=== PATIENT | female | born 1950 | race American Indian/Alaskan Native ===

== ENCOUNTER 2020-07-29 09:48 | Observation (INO) ==
[2020-07-29] MEDS ORDERED: ASPIRIN 81 MG TAB.CHEW CHEWED ONE (10:10)
--- NOTE | 2020-07-29 10:35 | XRay Report ---
CLINICAL INFORMATION: Weakness COMPARISON: None. TECHNIQUE: PA and Lateral views FINDINGS: The heart size, mediastinum and pulmonary vessels are unremarkable. The lungs are clear. There are no effusions. The bones and soft tissues are within normal limits. IMPRESSION: Normal chest. Interpreted and Authenticated by: Pro Ryder 07/29/20
[2020-07-29 10:56] LABS: Basophils # (Auto) 0.06 K/mcL (0.00-0.30); Basophils % (Auto) 1.8 % (0.0-2.0); Eosinophils # (Auto) 0.18 K/mcL (0.00-0.70); Eosinophils % (Auto) 5.5 % (0.0-7.0); Granulocytes % (Auto) 56.8 % (38.0-78.0); Hematocrit 35.6 % (34.1-44.9); Hemoglobin 11.8 g/dL (11.2-15.7); Lymphocytes % (Auto) 21.3 % (15.5-49.0); Mean Cell Volume 104.7 fL (80.0-100.0); Mean Corpuscular HGB Conc 33.1 g/dL (31.0-36.0); Mean Platelet Volume 9.3 fL (7.4-10.4); Monocytes # (Auto) 0.48 K/mcL (0.10-0.90); Monocytes % (Auto) 14.6 % (1.0-12.0); Platelet Count 239 K/mcL (140-440); Red Cell Distribution Width 17.2 % (11.5-14.5); WBC 3.3 K/mcL (4.50-11.00)
[2020-07-29 11:36] LABS: Creatine Kinase MB 5.8 ng/ml (0-2.9); Myoglobin 65 ng/ml (25-58)
[2020-07-29 11:45] LABS: ALT/SGPT 13 U/l (0-40); AST/SGOT 24 U/l (0-37); Albumin 2.9 gm/dL (3.2-5.2); Albumin/Globulin Ratio 0.5 (1.0-2.3); Alkaline Phosphatase 42 U/L (39-117); Bilirubin,Total 1.1 mg/dL (0.0-1.0); Blood Urea Nitrogen 8 mg/dl (8-23); Carbon Dioxide 21 mmol/L (22-30); Chloride 99 mmol/L (96-108); Creatine Kinase 37 IU/L (24-170); Globulin 6.1 gm/dL (2.2-3.7); Glomerular Filtration Rate 87; Glucose 90 mg/dL (70-105)
[2020-07-29] MEDS ORDERED: POTASSIUM CHLORIDE 20 MEQ in DEXTROSE 5% IN WATER 250 ML IV ONE (11:58)
[2020-07-29 13:06] LABS: Appearance,Urine HAZY; Bacteria,Urine FEW /hpf (0); Bilirubin,Urine NEG (NEG); Color,Urine AMBER; Culture Indicated,Urine YES; Glucose,Urine (UA) NEGATIVE (NEG); Ketones,Urine 5/TR mg/dL (NEG); Leukocyte Esterase,Urine 250 /uL (NEG); Mucus,Urine MANY /hpf (0); Nitrate,Urine NEG (NEG); Protein,Urine 30 mg/dL (NEG); Specific Gravity,Urine 1.018 (1.000-1.035); Urine Blood NEG mg/dL (<0.03); Urine Hyaline Cast 170 /lpf (0-2); Urine RBC 2 /hpf (0-1); Urine Squamous Epithelial Cell 3 /hpf (0-4); Urine Transitional Epi Cells 1 /hpf (0-2); Urine WBC 18 /hpf (0-4)
--- NOTE | 2020-07-29 13:53 | Emergency Department Note ---
Weakness HPI General Chief complaint: Weakness Stated complaint: weak Time Seen by Provider: 07/29/20 10:05 Source: family Mode of arrival: wheelchair Limitations: no limitations History of Present Illness HPI Narrative: Narrative: 70-year-old female presents with multiple complaints. Main concern is chest pain for the last 4 to 6 months. She went to her primary care provider's office on Wednesday and they found out today that her troponin was elevated at 0.05 so they sent her to the ER for further evaluation. States she has been generally weak, losing times a week, and having this chest pain for at least 4 months, may be more like 6 months. Chest pain is a constant dull ache in the left side of her chest. It was reported that she needs to go to some sort of assisted living facility or long term that she cannot care for herself at home and they would like health and social care teacher to see her for that. No fever or chills. No cough or cold symptoms. No nausea, vomiting, or diarrhea. She does report that she was tested for COVID a while ago, possibly a couple of weeks ago and it was negative but she cannot recall exactly when. She denies any fall, trauma, or injury. Is poor historian. States her recent medications were recently changed and she cannot tell us her current medication list. She has no other complaints other than chest pain and generalized weakness. No home treatments. Nothing seems to make this better or worse, it is constant. Related Data Home Medications Medication Instructions Recorded Confirmed azathioprine 50 mg PO QDAY 07/29/20 07/29/20 ergocalciferol (vitamin D2) 1,250 mcg PO WEEKLY 07/29/20 07/29/20 ferrous sulfate 325 mg PO QDAY 07/29/20 07/29/20 lidocaine [Lidocaine Pain Relief] 2 patch TOPICAL Q24H PRN 07/29/20 07/29/20 metoprolol succinate 12.5 mg PO QDAY 07/29/20 07/29/20 polyethylene glycol 3350 [Miralax] 17 g PO BID 07/29/20 07/29/20 prednisone 10 mg PO QDAY 07/29/20 07/29/20 Allergies Allergy/AdvReac Type Severity Reaction Status Date / Time aspirin Allergy Severe Numbness Verified 07/29/20 10:19 albuterol Allergy Unknown Unknown Verified 07/29/20 10:19 Benzonatate Allergy Unknown Unknown Verified 07/29/20 10:19 codeine Allergy Unknown Unknown Verified 07/29/20 10:19 doxycycline Allergy Unknown Unknown Verified 07/29/20 10:19 hydrocodone Allergy Unknown Unknown Verified 07/29/20 10:19 loratadine Allergy Unknown Unknown Verified 07/29/20 10:19 Review of Systems ROS ROS Narrative: Narrative: All systems ED: reviewed and negative except as stated. PFSH Narrative Patient History Narrative: Narrative: Medical/Surgical/Family History All Active Problems (Updated 07/29/20 @ 17:32 by Aida Torrez [employer] MACHINE OPERATOR) Acute hypokalemia (Acute) Chronic chest pain (Acute) Generalized weakness (Acute) Adult failure to thrive (Acute) Constipation (Acute) Medical History COPD (chronic obstructive pulmonary disease) (Acute) Liver problem (Acute) Social History Smoking Status: Never smoker Alcohol Intake Frequency: does not drink Substance Use: does not use Exam Narrative Narrative: Narrative: General Limitations: no limitations General appearance: Present thin (and frail appearing) Head Head: Present atraumatic and normocephalic Eye Eye: Present normal appearance; Absent conjunctival injection ENT ENT: Present normal exam, normal oropharynx, mucous membranes moist, TM's normal bilaterally and normal external ear exam Neck Neck: Present normal inspection and trachea midline; Absent lymphadenopathy Chest Chest: Present normal inspection and symmetric chest wall rise Respiratory Respiratory: Present normal lung sounds bilaterally; Absent respiratory distress, rales/crackles, wheezes, stridor and accessory muscle use Cardiovascular Cardiovascular: Present regular rate and normal heart sounds Extremities Extremities: Present normal inspection Neurological Neurological: Present alert and oriented X3 Psychiatric Psychiatric: Present normal affect and normal mood Skin Skin: Present warm, dry, intact and normal color; Absent diaphoretic and rash Course Course Course Narrative: @ 1600, I did speak with the office services clerk, Dr. Rodriguez at [facility]. Discussed the 0.05 troponin with him on Wednesday and the possibility of a non-STEMI. He states this was possibly an incidental finding as it was only mildly high and repeat labs today are all negative. EKG without acute changes. Discussed with him a stress test and he states this is not emergent by any means and can be completely worked up outpatient with no urgency. At 1610 I did speak with the hospitalist, Dr. Han who agrees to accept this patient. Vital Signs Vital signs: Vital Signs Temperature 96.7 F L 07/29/20 09:50 Pulse Rate 85 07/29/20 09:50 Respiratory Rate 16 07/29/20 09:50 Blood Pressure 120/74 07/29/20 09:50 Pulse Oximetry (%) 98 07/29/20 09:50 Temperature 96.7 F L 07/29/20 09:50 Pulse Rate 87 07/29/20 17:16 Respiratory Rate 30 H 07/29/20 17:16 Blood Pressure 127/73 07/29/20 17:16 Pulse Oximetry (%) 99 07/29/20 17:16 MDM MDM Narrative Medical decision making narrative: Narrative: Lab Data Lab results reviewed: Yes I reviewed the patient's lab results. Result diagrams: 07/29/20 10:16 07/29/20 10:16 Labs: Lab Results 07/29/20 07/29/20 07/29/20 Range/Units 10:16 10:16 10:16 WBC 3.3 L (4.50-11.00) K/mcL RBC 3.40 L (3.59-5.38) M/mcL Hgb 11.8 (11.2-15.7) g/dL Hct 35.6 (34.1-44.9) % MCV 104.7 H (80.0-100.0) fL MCH 34.7 H (26.0-34.0) pg MCHC 33.1 (31.0-36.0) g/dL RDW 17.2 H (11.5-14.5) % Plt Count 239 (140-440) K/mcL MPV 9.3 (7.4-10.4) fL Gran % 56.8 (38.0-78.0) % Lymph % (Auto) 21.3 (15.5-49.0) % [place] % (Auto) 14.6 H (1.0-12.0) % Eos % (Auto) 5.5 (0.0-7.0) % Baso % (Auto) 1.8 (0.0-2.0) % Gran # 1.86 (1.80-8.00) K/mcL Lymph # (Auto) 0.70 L (1.50-4.80) K/mcL [place] # (Auto) 0.48 (0.10-0.90) K/mcL Eos # (Auto) 0.18 (0.00-0.70) K/mcL Baso # (Auto) 0.06 (0.00-0.30) K/mcL Sodium 138 (133-145) mmol/L Potassium 2.9 L* (3.3-5.1) mmol/L Chloride 99 (96-108) mmol/L Carbon Dioxide 21 L (22-30) mmol/L Anion Gap 18.0 H (8-16) BUN 8 (8-23) mg/dl Creatinine 0.7 (0.6-1.1) mg/dl GFR Calculation 87 Glucose 90 (70-105) mg/dL Calcium 9.0 (8.6-10.4) mg/dl Total Bilirubin 1.1 H (0.0-1.0) mg/dL AST 24 (0-37) U/l ALT 13 (0-40) U/l Alkaline Phosphatase 42 (39-117) U/L Total Creatine Kinase 37 (24-170) IU/L CK-MB (CK-2) 5.8 H (0-2.9) ng/ml Myoglobin 65 H (25-58) ng/ml Troponin T < 0.01 (0-0.03) ng/ml Total Protein 9.0 H (5.9-8.4) gm/dL Albumin 2.9 L (3.2-5.2) gm/dL Globulin 6.1 H (2.2-3.7) gm/dL Albumin/Globulin Ratio 0.5 L (1.0-2.3) Hold Red Top Not Reportable Urine Color Urine Appearance Urine pH (5.0-9.0) Ur Specific [place] (1.000-1.035) Urine Protein (NEG) mg/dL Urine Glucose (UA) (NEG) mg/dL Urine Ketones (NEG) mg/dL Urine Occult Blood (<0.03) mg/dL Urine Nitrate (NEG) Urine Bilirubin (NEG) mg/dL Urine Urobilinogen (NEG) mg/dL Ur Leukocyte Esterase (NEG) /uL Urine RBC (0-1) /hpf Urine WBC (0-4) /hpf Ur Squamous Epith Cells (0-4) /hpf Ur Transition Epith Cell (0-2) /hpf Urine Bacteria (0) /hpf Hyaline Casts (0-2) /lpf Urine Mucus (0) /hpf Ur Culture Indicated? 07/29/20 07/29/20 Range/Units 10:16 11:52 WBC (4.50-11.00) K/mcL RBC (3.59-5.38) M/mcL Hgb (11.2-15.7) g/dL Hct (34.1-44.9) % MCV (80.0-100.0) fL MCH (26.0-34.0) pg MCHC (31.0-36.0) g/dL RDW (11.5-14.5) % Plt Count (140-440) K/mcL MPV (7.4-10.4) fL Gran % (38.0-78.0) % Lymph % (Auto) (15.5-49.0) % [place] % (Auto) (1.0-12.0) % Eos % (Auto) (0.0-7.0) % Baso % (Auto) (0.0-2.0) % Gran # (1.80-8.00) K/mcL Lymph # (Auto) (1.50-4.80) K/mcL [place] # (Auto) (0.10-0.90) K/mcL Eos # (Auto) (0.00-0.70) K/mcL Baso # (Auto) (0.00-0.30) K/mcL Sodium (133-145) mmol/L Potassium (3.3-5.1) mmol/L Chloride (96-108) mmol/L Carbon Dioxide (22-30) mmol/L Anion Gap (8-16) BUN (8-23) mg/dl Creatinine (0.6-1.1) mg/dl GFR Calculation Glucose (70-105) mg/dL Calcium (8.6-10.4) mg/dl Total Bilirubin (0.0-1.0) mg/dL AST (0-37) U/l ALT (0-40) U/l Alkaline Phosphatase (39-117) U/L Total Creatine Kinase 36 (24-170) IU/L CK-MB (CK-2) (0-2.9) ng/ml Myoglobin (25-58) ng/ml Troponin T (0-0.03) ng/ml Total Protein (5.9-8.4) gm/dL Albumin (3.2-5.2) gm/dL Globulin (2.2-3.7) gm/dL Albumin/Globulin Ratio (1.0-2.3) Hold Red Top Urine Color [place] Urine Appearance Hazy Urine pH 6.0 (5.0-9.0) Ur Specific [place] 1.018 (1.000-1.035) Urine Protein 30 A (NEG) mg/dL Urine Glucose (UA) Negative (NEG) mg/dL Urine Ketones 5/tr A (NEG) mg/dL Urine Occult Blood Neg (<0.03) mg/dL Urine Nitrate Neg (NEG) Urine Bilirubin Neg (NEG) mg/dL Urine Urobilinogen 4.0 A (NEG) mg/dL Ur Leukocyte Esterase 250 A (NEG) /uL Urine RBC 2 H (0-1) /hpf Urine WBC 18 H (0-4) /hpf Ur Squamous Epith Cells 3 (0-4) /hpf Ur Transition Epith Cell 1 (0-2) /hpf Urine Bacteria Few A (0) /hpf Hyaline Casts 170 H (0-2) /lpf Urine Mucus Many A (0) /hpf Ur Culture Indicated? Yes Radiology Data Radiology results reviewed: Yes I reviewed the patient's radiology results. Discharge Plan Patient/Caregiver Discharge Instructions Pt seen by HEAD GIRLS GOLF COACH/PA only: Yes Clinical Impression: Acute hypokalemia, Chronic chest pain, Generalized weakness, Adult failure to thrive Patient Disposition: Xfer As Outpt/Obs ([facility]) Condition: Fair Follow up with: Ulises Olivier ARNP [Primary Care Provider] - Prescriptions: No Action ferrous sulfate 325 mg (65 mg iron) Tablet 325 mg PO QDAY RF: 0 metoprolol succinate 25 mg Tablet Extended Release 24 Hr 12.5 mg PO QDAY RF: 0 ergocalciferol (vitamin D2) 1,250 mcg (50,000 unit) Capsule 1,250 mcg PO WEEKLY RF: 0 polyethylene glycol 3350 [Miralax] 17 gram/dose Powder 17 g PO BID RF: 0 prednisone 10 mg Tablet 10 mg PO QDAY RF: 0 lidocaine [Lidocaine Pain Relief] 4 % Adhesive Patch,Medicated 2 patch TOPICAL Q24H PRN (Reason: Pain) RF: 0 azathioprine 50 mg Tablet 50 mg PO QDAY RF: 0
[2020-07-29] MEDS ORDERED: ONDANSETRON 4 MG ODT TABLET SL PRN (16:32)
[2020-07-29] MEDS ORDERED: LIDOCAINE TOPICAL PRN (16:39)
[2020-07-29] MEDS ORDERED: 0.9 % SODIUM CHLORIDE 1,000 ML IV SCH ×2 (16:45→17:45)
[2020-07-29] MEDS ORDERED: ERGOCALCIFEROL (VITAMIN D2) 50,000 UNIT CAPSULE PO SCH (16:45)
--- NOTE | 2020-07-29 16:57 | Internal Med History&Physical ---
HPI History of Present Illness Patient information: Note initiated : 07/29/20 at 4:44 pm Service Date, if different from initiated Date: [] Patient: Jodie Cazares a 70 y/o F admitted on for weak. Chief Complaint: [] History of present illness: Ms. Cazares is a 70 year old F with a past medical history of hypertension who presented to the ER due to chest pain and generalized weakness. As per patient, patient has been having constant left-sided chest pain over the past 4 to 6 months. The pain is sharp in nature and 9 out of 10 in severity. No radiation. She also complains of generalized weakness and is not able to take care for her self. She lives alone and would like to go to a facility. Last Wednesday, she went to her PCP office, over there she was found to have elevation of troponin, 0.05. In the ER, troponin was negative, less than 0.01. Potassium 2.9. When I saw this patient in the ER, other than the symptoms, she also complained of mild dizziness, nausea and shortness of breath. Denied headache, abdominal pain, diarrhea, or dysuria. She had a negative completed 19 test weeks ago. Review of Systems Review of systems: Positive for chest pain. All other systems were reviewed and are negative. PFSH PFSH All Active Problems Constipation (Acute) Medical History COPD (chronic obstructive pulmonary disease) (Acute) Liver problem (Acute) Social History smoking status: Never smoker alcohol intake frequency: does not drink substance use type: does not use MEDS/ALLERGIES Home Medications and Allergies Home Medications Medication Instructions Recorded Confirmed Type azathioprine 50 mg PO QDAY 07/29/20 07/29/20 History ergocalciferol (vitamin D2) 1,250 mcg PO WEEKLY 07/29/20 07/29/20 History ferrous sulfate 325 mg PO QDAY 07/29/20 07/29/20 History lidocaine [Lidocaine Pain Relief] 2 patch TOPICAL Q24H PRN 07/29/20 07/29/20 History metoprolol succinate 12.5 mg PO QDAY 07/29/20 07/29/20 History polyethylene glycol 3350 [Miralax] 17 g PO BID 07/29/20 07/29/20 History prednisone 10 mg PO QDAY 07/29/20 07/29/20 History Allergies Allergy/AdvReac Type Severity Reaction Status Date / Time aspirin Allergy Severe Numbness Verified 07/29/20 10:19 albuterol Allergy Unknown Unknown Verified 07/29/20 10:19 Benzonatate Allergy Unknown Unknown Verified 07/29/20 10:19 codeine Allergy Unknown Unknown Verified 07/29/20 10:19 doxycycline Allergy Unknown Unknown Verified 07/29/20 10:19 hydrocodone Allergy Unknown Unknown Verified 07/29/20 10:19 loratadine Allergy Unknown Unknown Verified 07/29/20 10:19 EXAM Constitutional Vitals: Temp Pulse Resp BP Pulse Ox 96.7 F L 88 17 139/79 98 07/29/20 09:50 07/29/20 16:31 07/29/20 16:31 07/29/20 16:31 07/29/20 16:31 Additional findings Additional findings: General - No acute distress, thin Eyes - PERRLA, EOM intact ENT no rhinorrhea, no noticeable or palpable swelling, no redness or rash around throat or on face Neck supple, no JVD, no thyromegaly Respiratory: Lungs - diminshed BS, no use of accessary muscles. Cardiovascular -moderate chest that tenderness. RRR no m/r/g, GI - Normal bowel sounds, no distended, soft. Extremeties - No edema, cyanosis or clubbing Hemo/lymphatic/immune no lymphadenopathy Neurological Alert and oriented x 3, no focal neurological deficits. Psychiatry flat affect DATA Data Completed and Pending Labs: Labs from last 24 hours 07/29/20 07/29/20 07/29/20 11:52 10:16 10:16 WBC RBC Hgb Hct MCV MCH MCHC RDW Plt Count MPV Gran % Lymph % (Auto) [place] % (Auto) Eos % (Auto) Baso % (Auto) Gran # Lymph # (Auto) [place] # (Auto) Eos # (Auto) Baso # (Auto) Sodium Potassium Chloride Carbon Dioxide Anion Gap BUN Creatinine GFR Calculation Glucose Calcium Total Bilirubin AST ALT Alkaline Phosphatase Total Creatine Kinase 36 CK-MB (CK-2) Myoglobin Troponin T < 0.01 Total Protein Albumin Globulin Albumin/Globulin Ratio Hold Red Top Urine Color [place] Urine Appearance Hazy Urine pH 6.0 Ur Specific [place] 1.018 Urine Protein 30 A Urine Glucose (UA) Negative Urine Ketones 5/tr A Urine Occult Blood Neg Urine Nitrate Neg Urine Bilirubin Neg Urine Urobilinogen 4.0 A Ur Leukocyte Esterase 250 A Urine RBC 2 H Urine WBC 18 H Ur Squamous Epith Cells 3 Ur Transition Epith Cell 1 Urine Bacteria Few A Hyaline Casts 170 H Urine Mucus Many A Ur Culture Indicated? Yes 07/29/20 07/29/20 10:16 10:16 WBC 3.3 L RBC 3.40 L Hgb 11.8 Hct 35.6 MCV 104.7 H MCH 34.7 H MCHC 33.1 RDW 17.2 H Plt Count 239 MPV 9.3 Gran % 56.8 Lymph % (Auto) 21.3 [place] % (Auto) 14.6 H Eos % (Auto) 5.5 Baso % (Auto) 1.8 Gran # 1.86 Lymph # (Auto) 0.70 L [place] # (Auto) 0.48 Eos # (Auto) 0.18 Baso # (Auto) 0.06 Sodium 138 Potassium 2.9 L* Chloride 99 Carbon Dioxide 21 L Anion Gap 18.0 H BUN 8 Creatinine 0.7 GFR Calculation 87 Glucose 90 Calcium 9.0 Total Bilirubin 1.1 H AST 24 ALT 13 Alkaline Phosphatase 42 Total Creatine Kinase 37 CK-MB (CK-2) 5.8 H Myoglobin 65 H Troponin T Total Protein 9.0 H Albumin 2.9 L Globulin 6.1 H Albumin/Globulin Ratio 0.5 L Hold Red Top Not Reportable Urine Color Urine Appearance Urine pH Ur Specific [place] Urine Protein Urine Glucose (UA) Urine Ketones Urine Occult Blood Urine Nitrate Urine Bilirubin Urine Urobilinogen Ur Leukocyte Esterase Urine RBC Urine WBC Ur Squamous Epith Cells Ur Transition Epith Cell Urine Bacteria Hyaline Casts Urine Mucus Ur Culture Indicated? A/P Narrative A/P Narrative: 1. Chest pain Tenderness Last Wednesday troponin was 0.05. In the ER, troponin negative. Repeat troponin EKG no ST elevation Chest x-ray negative for acute change ER Aida discussed with central communications specialist Dr. Landeros, who felt pt does not stress test at this admission and suggested stress test as an outpatient. Start aspirin and Lipitor Lipid profile 2. Generalized weakness PT OT 3. Adult failure to thrive Garage Helper consult TSH Hemoglobin A1c 4. Seft care deficit PT OT CM 5. HTN Continue home medication 6. Hypokalemia Replaced Repeat potassium in the morning 7. Malnutrition Nutritional consult 8. DVT prophylaxis: Lovenox 9. CODE STATUS: Full. Time Spent With Patient Time: Total time spent is greater than 50% in coordination of care (as documented) at patient's floor/unit and/or counseling patient:
[2020-07-29] MEDS ORDERED: LIDOCAINE PATCH TOPICAL PRN ×2 (17:00→17:45)
--- NOTE | 2020-07-29 17:03 | Event Note ---
Event Note Event Note: Parties in Attendance: Patient Decisional Capacity: Yes POLST form completed: not I explained the process regarding CPR and intubation to the patient. Pt agreed with CRP and intubation.
[2020-07-29 17:56] LABS: Thyroid Stimulating Hormone 3.64 uIU/ml (0.27-5.01); proBNP 983.8 pg/ml (0-125)
[2020-07-29 18:04] LABS: Phosphorous 3.5 mg/dL (2.7-4.5)
[2020-07-29] MEDS: ONDANSETRON 4 MG ODT TABLET SL PRN (18:21)
[2020-07-29 18:29] LABS: Hemoglobin A1C 4.5 % HGB (4.0-6.0)
[2020-07-29] MEDS ORDERED: traMADol 50 MG TABLET PO PRN (19:52)
[2020-07-29] MEDS: morphine 2 MG/ML VIAL IV PRN (20:26)
[2020-07-29] MEDS: POTASSIUM CHLORIDE 20 MEQ TABLET PO SCH ×2 (20:30→22:44)
[2020-07-29] MEDS: DOCUSATE SODIUM 100 MG CAPSULE PO SCH (20:30)
[2020-07-29] MEDS: POLYETHYLENE GLYCOL 3350 17 GM PACKET PO SCH (20:31)
[2020-07-29] MEDS: 0.9 % SODIUM CHLORIDE 10 ML SYRINGE IV SCH (20:33)
[2020-07-29] MEDS ORDERED: DOCUSATE SODIUM 100 MG CAPSULE PO SCH (21:00)
[2020-07-29] MEDS ORDERED: POLYETHYLENE GLYCOL 3350 17 GM PACKET PO SCH (21:00)
[2020-07-29] MEDS ORDERED: SENNOSIDES 1 TABLET PO SCH ×2 (21:00)
[2020-07-29] MEDS ORDERED: 0.9 % SODIUM CHLORIDE 10 ML SYRINGE IV SCH (22:00)
[2020-07-30] MEDS: POTASSIUM CHLORIDE 20 MEQ TABLET PO SCH ×2 (00:46→02:07)
[2020-07-30] MEDS: morphine 2 MG/ML VIAL IV PRN ×2 (02:16→09:40)
[2020-07-30] MEDS: 0.9 % SODIUM CHLORIDE 10 ML SYRINGE IV SCH (05:47)
[2020-07-30 07:30] LABS: Basophils # (Auto) 0.06 K/mcL (0.00-0.30); Basophils % (Auto) 1.4 % (0.0-2.0); Eosinophils # (Auto) 0.29 K/mcL (0.00-0.70); Eosinophils % (Auto) 6.7 % (0.0-7.0); Granulocytes % (Auto) 47.7 % (38.0-78.0); Hematocrit 31.7 % (34.1-44.9); Hemoglobin 10.5 g/dL (11.2-15.7); Lymphocytes # (Auto) 0.98 K/mcL (1.50-4.80); Lymphocytes % (Auto) 22.8 % (15.5-49.0); Mean Cell Volume 106.4 fL (80.0-100.0); Mean Corpuscular HGB Conc 33.1 g/dL (31.0-36.0); Mean Platelet Volume 9.3 fL (7.4-10.4); Monocytes # (Auto) 0.92 K/mcL (0.10-0.90); Monocytes % (Auto) 21.4 % (1.0-12.0); Platelet Count 224 K/mcL (140-440); RBC 2.98 M/mcL (3.59-5.38); Red Cell Distribution Width 17.3 % (11.5-14.5); WBC 4.3 K/mcL (4.50-11.00)
[2020-07-30] MEDS ORDERED: PANTOPRAZOLE 40 MG TABLET PO SCH ×2 (07:30)
[2020-07-30 07:57] LABS: ALT/SGPT 11 U/l (0-40); AST/SGOT 21 U/l (0-37); Albumin 2.5 gm/dL (3.2-5.2); Albumin/Globulin Ratio 0.5 (1.0-2.3); Alkaline Phosphatase 38 U/L (39-117); Bilirubin,Total 0.9 mg/dL (0.0-1.0); Calcium 8.5 mg/dl (8.6-10.4); Carbon Dioxide 20 mmol/L (22-30); Chloride 104 mmol/L (96-108); Globulin 5.3 gm/dL (2.2-3.7); Glomerular Filtration Rate 92; Glucose 68 mg/dL (70-105)
[2020-07-30 07:59] LABS: Blood Urea Nitrogen 6 mg/dl (8-23)
[2020-07-30] MEDS ORDERED: FERROUS SULFATE 325 MG TABLET PO SCH ×2 (08:00)
[2020-07-30] MEDS ORDERED: predniSONE 10 MG TABLET PO SCH ×2 (08:00)
[2020-07-30] MEDS ORDERED: ASPIRIN 81 MG TAB.CHEW CHEWED SCH ×2 (09:00)
[2020-07-30] MEDS ORDERED: METOPROLOL SUCCINATE 25 MG TAB.XL.24H PO SCH ×2 (09:00)
[2020-07-30] MEDS ORDERED: ENOXAPARIN 40 MG/0.4 ML SYRINGE SQ SCH ×2 (09:00)
[2020-07-30] MEDS ORDERED: ATORVASTATIN 40 MG TABLET PO SCH ×2 (09:00)
[2020-07-30] MEDS ORDERED: azaTHIOprine 50 MG TABLET PO SCH ×2 (09:00)
[2020-07-30] MEDS: POLYETHYLENE GLYCOL 3350 17 GM PACKET PO SCH (09:40)
[2020-07-30] MEDS: ONDANSETRON 4 MG ODT TABLET SL PRN (09:41)
[2020-07-30] MEDS: DOCUSATE SODIUM 100 MG CAPSULE PO SCH (09:41)
--- NOTE | 2020-07-30 11:35 | Discharge Summary ---
Discharge Provider Provider Patient information: Note initiated : 07/30/20 at 11:34 am Service Date, if different from initiated Date: [] Patient: Jodie Cazares 70 y/o F admitted on 07/29/20 for weak. Chief Complaint: [] Date of admission: 07/29/20 17:32 Discharge date: 07/30/20 Primary care physician: MARIA DEL CARMEN Samuel Consults: 07/29/20 Consult to Physician [CONS] Stat Comment: Consulting Provider: Maria Teresa Han Reason For Exam: Physician to Consult 07/29/20 19:12 Consult to Physician [CONS] Routine Comment: Consulting Provider: [facility] Reason For Exam: Physician to Consult Discharge Meds Discharge Medications Home Medications azathioprine 50 mg PO QDAY 07/29/20 [History Confirmed 07/29/20 Last Taken Unknown] ergocalciferol (vitamin D2) 1,250 mcg PO WEEKLY 07/29/20 [History Confirmed 07/29/20 Last Taken Unknown] ferrous sulfate 325 mg PO QDAY 07/29/20 [History Confirmed 07/29/20 Last Taken Unknown] lidocaine [Lidocaine Pain Relief] 2 patch TOPICAL Q24H PRN 07/29/20 [History Confirmed 07/29/20 Last Taken Unknown] metoprolol succinate 12.5 mg PO QDAY 07/29/20 [History Confirmed 07/29/20 Last Taken Unknown] polyethylene glycol 3350 [Miralax] 17 g PO BID 07/29/20 [History Confirmed 07/29/20 Last Taken Unknown] prednisone 10 mg PO QDAY 07/29/20 [History Confirmed 07/29/20 Last Taken Unknown] aspirin 81 mg CHEWED DAILY #30 tab 07/30/20 [Rx Last Taken Unknown] atorvastatin 40 mg PO DAILY #30 tab 07/30/20 [Rx Last Taken Unknown] COURSE Hospital Course Hospital course: BY problems: 1. Chest pain Anterior chest tenderness, improved today troponin < 0.01 x [address] elevation Chest x-ray negative for acute change ER [facility]ra discussed with dealer development manager Dr. Landeros, who felt pt does not stress test at this admission and suggested stress test as an outpatient. Started aspirin and Lipitor 2. Generalized weakness PT OT 3. Adult failure to thrive Fur Finisher Seamstress consult TSH pending Hemoglobin A1c pending 4. Seft care deficit PT OT CM 5. HTN Continue home medication 6. Hypokalemia resovled 7. Malnutrition Nutritional consult Today patient does not have any new complaints. Chest pain improved. Monitor signs are stable. Troponin less than 0.01 x 3. Patient will be discharged to SNF today to follow with the PCP and dealer development manager. She would need stress test as soon as possible. Continue PT OT and the senior tableau developer consult. Call PCP for medical issues. Discharge diagnosis: Chest pain, Seft care deficit Time Spent with Patient Time attestation: Total time spent providing and/or coordinating discharge services: EXAM Constitutional Vitals: Temp Pulse Resp BP Pulse Ox 98.3 F 97 H 20 117/67 97 07/30/20 07:58 07/30/20 07:58 07/30/20 08:00 07/30/20 07:58 07/30/20 08:00 Additional findings Additional findings: General - No acute distress, thin Eyes - PERRLA, EOM intact ENT no rhinorrhea, no noticeable or palpable swelling, no redness or rash around throat or on face Neck supple, no JVD, no thyromegaly Respiratory: Lungs - diminshed BS, no use of accessary muscles. Cardiovascular -moderate chest that tenderness (improved). RRR no m/r/g, GI - Normal bowel sounds, no distended, soft. Extremeties - No edema, cyanosis or clubbing Hemo/lymphatic/immune no lymphadenopathy Neurological Alert and oriented x 3, no focal neurological deficits. Psychiatry flat affect Discharge Data Data Completed and Pending Labs on day of discharge: Labs from last 24 hours 07/30/20 07/30/20 07/30/20 06:15 06:15 06:15 WBC 4.3 L RBC 2.98 L Hgb 10.5 L Hct 31.7 L MCV 106.4 H MCH 35.2 H MCHC 33.1 RDW 17.3 H Plt Count 224 MPV 9.3 Gran % 47.7 Lymph % (Auto) 22.8 [place] % (Auto) 21.4 H Eos % (Auto) 6.7 Baso % (Auto) 1.4 Gran # 2.05 Lymph # (Auto) 0.98 L [place] # (Auto) 0.92 H Eos # (Auto) 0.29 Baso # (Auto) 0.06 Sodium 136 Potassium 4.6 Chloride 104 Carbon Dioxide 20 L Anion Gap 12.0 BUN 6 L Creatinine 0.6 GFR Calculation 92 Glucose 68 L Hemoglobin A1c Estim Average Glucose Calcium 8.5 L Phosphorus Magnesium Total Bilirubin 0.9 AST 21 ALT 11 Alkaline Phosphatase 38 L Total Creatine Kinase CK-MB (CK-2) Myoglobin Troponin T < 0.01 NT-Pro-B Natriuret Pep Total Protein 7.8 Albumin 2.5 L Globulin 5.3 H Albumin/Globulin Ratio 0.5 L TSH Hold Red Top Urine Color Urine Appearance Urine pH Ur Specific [place] Urine Protein Urine Glucose (UA) Urine Ketones Urine Occult Blood Urine Nitrate Urine Bilirubin Urine Urobilinogen Ur Leukocyte Esterase Urine RBC Urine WBC Ur Squamous Epith Cells Ur Transition Epith Cell Urine Bacteria Hyaline Casts Urine Mucus Ur Culture Indicated? 07/30/20 07/29/20 07/29/20 03:00 18:37 11:52 WBC RBC Hgb Hct MCV MCH MCHC RDW Plt Count MPV Gran % Lymph % (Auto) [place] % (Auto) Eos % (Auto) Baso % (Auto) Gran # Lymph # (Auto) [place] # (Auto) Eos # (Auto) Baso # (Auto) Sodium Potassium Chloride Carbon Dioxide Anion Gap BUN Creatinine GFR Calculation Glucose Hemoglobin A1c Estim Average Glucose Calcium Phosphorus Magnesium Total Bilirubin AST ALT Alkaline Phosphatase Total Creatine Kinase CK-MB (CK-2) Myoglobin Troponin T < 0.01 < 0.01 NT-Pro-B Natriuret Pep Total Protein Albumin Globulin Albumin/Globulin Ratio TSH Hold Red Top Urine Color [place] Urine Appearance Hazy Urine pH 6.0 Ur Specific [place] 1.018 Urine Protein 30 A Urine Glucose (UA) Negative Urine Ketones 5/tr A Urine Occult Blood Neg Urine Nitrate Neg Urine Bilirubin Neg Urine Urobilinogen 4.0 A Ur Leukocyte Esterase 250 A Urine RBC 2 H Urine WBC 18 H Ur Squamous Epith Cells 3 Ur Transition Epith Cell 1 Urine Bacteria Few A Hyaline Casts 170 H Urine Mucus Many A Ur Culture Indicated? Yes 07/29/20 07/29/20 07/29/20 10:16 10:16 10:16 WBC RBC Hgb Hct MCV MCH MCHC RDW Plt Count MPV Gran % Lymph % (Auto) [place] % (Auto) Eos % (Auto) Baso % (Auto) Gran # Lymph # (Auto) [place] # (Auto) Eos # (Auto) Baso # (Auto) Sodium Potassium Chloride Carbon Dioxide Anion Gap BUN Creatinine GFR Calculation Glucose Hemoglobin A1c 4.5 Estim Average Glucose 82 Calcium Phosphorus 3.5 Magnesium 1.8 Total Bilirubin AST ALT Alkaline Phosphatase Total Creatine Kinase 36 CK-MB (CK-2) Myoglobin Troponin T < 0.01 NT-Pro-B Natriuret Pep 983.8 H Total Protein Albumin Globulin Albumin/Globulin Ratio TSH 3.64 Hold Red Top Urine Color Urine Appearance Urine pH Ur Specific [place] Urine Protein Urine Glucose (UA) Urine Ketones Urine Occult Blood Urine Nitrate Urine Bilirubin Urine Urobilinogen Ur Leukocyte Esterase Urine RBC Urine WBC Ur Squamous Epith Cells Ur Transition Epith Cell Urine Bacteria Hyaline Casts Urine Mucus Ur Culture Indicated? 07/29/20 10:16 WBC RBC Hgb Hct MCV MCH MCHC RDW Plt Count MPV Gran % Lymph % (Auto) [place] % (Auto) Eos % (Auto) Baso % (Auto) Gran # Lymph # (Auto) [place] # (Auto) Eos # (Auto) Baso # (Auto) Sodium 138 Potassium 2.9 L* Chloride 99 Carbon Dioxide 21 L Anion Gap 18.0 H BUN 8 Creatinine 0.7 GFR Calculation 87 Glucose 90 Hemoglobin A1c Estim Average Glucose Calcium 9.0 Phosphorus Magnesium Total Bilirubin 1.1 H AST 24 ALT 13 Alkaline Phosphatase 42 Total Creatine Kinase 37 CK-MB (CK-2) 5.8 H Myoglobin 65 H Troponin T NT-Pro-B Natriuret Pep Total Protein 9.0 H Albumin 2.9 L Globulin 6.1 H Albumin/Globulin Ratio 0.5 L TSH Hold Red Top Not Reportable Urine Color Urine Appearance Urine pH Ur Specific [place] Urine Protein Urine Glucose (UA) Urine Ketones Urine Occult Blood Urine Nitrate Urine Bilirubin Urine Urobilinogen Ur Leukocyte Esterase Urine RBC Urine WBC Ur Squamous Epith Cells Ur Transition Epith Cell Urine Bacteria Hyaline Casts Urine Mucus Ur Culture Indicated? Discharge Plan Patient/Caregiver Discharge Instructions Activity: increase activity as tolerated Diet: Regular Diet Instructions: Weakness (DC) Prescriptions: New atorvastatin 40 mg Tablet 40 mg PO DAILY Qty: 30 RF: 0 aspirin 81 mg Tablet,Chewable 81 mg CHEWED DAILY Qty: 30 RF: 0 Continued ferrous sulfate 325 mg (65 mg iron) Tablet 325 mg PO QDAY RF: 0 metoprolol succinate 25 mg Tablet Extended Release 24 Hr 12.5 mg PO QDAY RF: 0 ergocalciferol (vitamin D2) 1,250 mcg (50,000 unit) Capsule 1,250 mcg PO WEEKLY RF: 0 polyethylene glycol 3350 [Miralax] 17 gram/dose Powder 17 g PO BID RF: 0 prednisone 10 mg Tablet 10 mg PO QDAY RF: 0 lidocaine [Lidocaine Pain Relief] 4 % Adhesive Patch,Medicated 2 patch TOPICAL Q24H PRN (Reason: Pain) RF: 0 azathioprine 50 mg Tablet 50 mg PO QDAY RF: 0 Follow Up Plan Follow up with: Ulises Olivier ARNP [Primary Care Provider] - Unknown [Outside] (pcp in 3 days and cardiology [place]. ) Patient Disposition: Xfer SNF Prognosis: Fair I certify that the patient requires SNF services: Yes Discharge Orders: Discharge Order (Routine); Ordered 07/30/20 Ordered By: Maria Teresa Han
== END 2020-07-30 12:26 ==
LOC: ED 09:48 → MEDSUR 09:48
PROVIDERS: ADMIT Internal Medicine; ATTEND Internal Medicine

== ENCOUNTER 2020-11-16 12:07 | Inpatient (IN) ==
[2020-11-16] MEDS ORDERED: IOPAMIDOL 100 ML BOTTLE IV ONE (12:08)
[2020-11-16 12:57] LABS: POC Calcium, Ionized 1.07 mmEq/L (1.16-1.32); POC Creatinine 0.3 mg/dL (0.6-1.2)
[2020-11-16 14:02] LABS: Basophils % (Auto) 1.4 % (0.0-2.0); Eosinophils # (Auto) 0.05 K/mcL (0.00-0.70); Eosinophils % (Auto) 0.7 % (0.0-7.0); Hematocrit 34.1 % (36.0-48.0); Hemoglobin 11.3 g/dL (12.0-15.0); Lymphocytes # (Auto) 0.86 K/mcL (1.50-4.80); Lymphocytes % (Auto) 11.8 % (15.0-49.0); Mean Cell Volume 107.9 fL (80.0-100.0); Mean Corpuscular HGB Conc 33.1 g/dL (31.0-36.0); Mean Platelet Volume 9.9 fL (7.4-10.4); Monocytes # (Auto) 0.74 K/mcL (0.10-0.90); Monocytes % (Auto) 10.2 % (1.0-12.0); Neutrophils % (Auto) 75.9 % (38.0-78.0); Platelet Count 210 K/mcL (140-440); RBC 3.16 M/mcL (4.00-5.20); Red Cell Distribution Width 14.3 % (11.5-14.5); WBC 7.3 K/mcL (4.5-11.0)
[2020-11-16 14:19] LABS: INR 1.1 (0.9-1.1)
[2020-11-16 14:19] LABS: Appearance,Urine CLEAR (Clear); Bilirubin,Urine Negative (Negative); Color,Urine AMBER; Culture Indicated,Urine No; Glucose,Urine (UA) Negative (Negative); Ketones,Urine 5 mg/dL (Negative); Leukocyte Esterase,Urine Negative /ug (Negative); Nitrate,Urine Negative (Negative); Protein,Urine Negative (Negative); Urine Blood Negative (Negative)
[2020-11-16] MEDS ORDERED: HYDROmorphone 0.5 MG/0.5 ML SYRINGE IV ONE ×2 (14:32→15:42)
--- NOTE | 2020-11-16 14:32 | Emergency Department Note ---
HPI General Chief complaint: Back Pain/Injury Stated complaint: back pain/fall Time Seen by Provider: 11/16/20 12:15 Source: patient and EMS Mode of arrival: wheelchair Limitations: no limitations History of Present Illness HPI Narrative: Narrative: 70-year-old female presents via EMS with multiple complaints. She called this morning due to 2 falls within the last 12 hours. States she gets so lightheaded that she falls. Occasionally has some chest pain or shortness of breath but nothing currently. No fever or chills. No nausea, vomiting, or diarrhea. States decreased appetite but she has been trying to m berna herself eat. She has a friend that checks on her once in a while but otherwise she lives at home alone with no help. Apparently for the last month or so she has been able unable to do much for herself at all and has recurrent falls almost daily. In the last 12 hours she states she did hit her head. She is had a headache and neck pain since. Also has thoracic and lumbar spine pain pain. No numbness or tingling. No incontinence of bowel or bladder. No abdominal pain. Has not been around any ill contacts that she knows of. No change in taste or smell. Denies being on blood thinners but is extremely poor historian. Related Data Home Medications Medication Instructions Recorded Confirmed azathioprine 50 mg PO QDAY 07/29/20 07/29/20 ergocalciferol (vitamin D2) 1,250 mcg PO WEEKLY 07/29/20 07/29/20 ferrous sulfate 325 mg PO QDAY 07/29/20 07/29/20 lidocaine [Lidocaine Pain Relief] 2 patch TOPICAL Q24H PRN 07/29/20 07/29/20 metoprolol succinate 12.5 mg PO QDAY 07/29/20 07/29/20 polyethylene glycol 3350 [Miralax] 17 g PO BID 07/29/20 07/29/20 prednisone 10 mg PO QDAY 07/29/20 07/29/20 famotidine 40 mg PO QDAY 11/16/20 11/16/20 polyvinyl alcohol [Artificial 1 drp OPHTHALMIC (EYE) QID PRN 11/16/20 11/16/20 Tears (polyvin alc)] Previous Rx's Medication Instructions Recorded aspirin 81 mg CHEWED DAILY #30 tab 07/30/20 atorvastatin 40 mg PO DAILY #30 tab 07/30/20 cephalexin [Keflex] 500 mg PO QID #30 cap 11/05/20 sulfamethoxazole-trimethoprim 1 tab PO BID #14 tab 11/05/20 [Bactrim DS] Allergies Allergy/AdvReac Type Severity Reaction Status Date / Time aspirin Allergy Severe Numbness Verified 11/16/20 12:09 albuterol Allergy Unknown Unknown Verified 11/16/20 12:09 Benzonatate Allergy Unknown Unknown Verified 11/16/20 12:09 codeine Allergy Unknown Unknown Verified 11/16/20 12:09 doxycycline Allergy Unknown Unknown Verified 11/16/20 12:09 hydrocodone Allergy Unknown Unknown Verified 11/16/20 12:09 loratadine Allergy Unknown Unknown Verified 11/16/20 12:09 Review of Systems ROS ROS Narrative: Narrative: All systems ED: reviewed and negative except as stated. PFSH Narrative Patient History Narrative: Narrative: Medical/Surgical/Family History All Active Problems (Updated 11/16/20 @ 17:28 by MARIA DEL CARMEN Walton) Acute hypokalemia (Acute) Chronic chest pain (Acute) Generalized weakness (Acute) Adult failure to thrive (Acute) Cellulitis (Acute) Compression fracture (Acute) Generalized weakness (Acute) Recurrent falls (Acute) Intractable back pain (Acute) Minor head injury (Acute) Constipation (Acute) Medical History COPD (chronic obstructive pulmonary disease) (Acute) Liver problem (Acute) Social History Smoking Status: Former smoker Alcohol Intake Frequency: does not drink Substance Use: does not use Exam Narrative Narrative: Narrative: General Limitations: no limitations General appearance: Present thin (Thin and frail appearing) Head Head: Present normocephalic; Absent atraumatic (Hematoma to left frontal area with skin intact. Mildly tender.) Eye Eye: Present normal appearance, PERRL and EOMI; Absent conjunctival injection ENT ENT: Present normal exam, normal oropharynx, mucous membranes moist, TM's normal bilaterally and normal external ear exam Neck Neck: Present normal inspection, trachea midline and tenderness (Tender mid C- spine. No step-off or deformity. Sensation intact upper extremities); Absent lymphadenopathy Chest Chest: Present symmetric chest wall rise Respiratory Respiratory: Present normal lung sounds bilaterally; Absent respiratory distress, rales/crackles, wheezes, stridor and accessory muscle use Cardiovascular Cardiovascular: Present regular rate and normal heart sounds Extremities Extremities: Present normal inspection and normal capillary refill; Absent pedal edema Neurological Neurological: Present alert and oriented X3 (Oriented x3 however she is very fo rgetful) Psychiatric Psychiatric: Present normal affect and normal mood Skin Skin: Present warm (WNL), dry, intact and normal color Course Vital Signs Vital signs: Vital Signs Temperature 97.1 F 11/16/20 12:09 Pulse Rate 101 H 11/16/20 12:09 Respiratory Rate 14 11/16/20 12:09 Blood Pressure 136/80 11/16/20 12:09 Pulse Oximetry (%) 97 11/16/20 12:09 Temperature 97.1 F 11/16/20 12:09 Pulse Rate 101 H 11/16/20 17:01 Respiratory Rate 14 11/16/20 12:09 Blood Pressure 129/72 11/16/20 17:01 Pulse Oximetry (%) 99 11/16/20 17:01 MDM MDM Narrative Medical decision making narrative: Narrative: CT does show compression fractures at T7 and T10 L1 area but undetermined if they are acute versus chronic. She does fall very frequently especially this last month. It appears that the patient really struggles at home to take care of herself and continues to reinjure herself due to falls. For that reason I am going to see if we have a bed available for placement related to recurrent falls, back pain, compression fractures, failure to thrive, and see if we can get her some placement somewhere in assisted care. @ 1720, hospitalist Dr. ashraf agrees to accept for obs. Lab Data Result diagrams: 11/16/20 12:43 11/16/20 14:10 Labs: Lab Results 11/16/20 11/16/20 11/16/20 Range/Units 12:43 12:43 12:43 WBC 7.3 (4.5-11.0) K/mcL RBC 3.16 L (4.00-5.20) M/mcL Hgb 11.3 L (12.0-15.0) g/dL Hct 34.1 L (36.0-48.0) % POC Hct (36-48) % MCV 107.9 H (80.0-100.0) fL MCH 35.8 H (26.0-34.0) pg MCHC 33.1 (31.0-36.0) g/dL RDW 14.3 (11.5-14.5) % Plt Count 210 (140-440) K/mcL MPV 9.9 (7.4-10.4) fL Neut % (Auto) 75.9 (38.0-78.0) % Lymph % (Auto) 11.8 L (15.0-49.0) % [place] % (Auto) 10.2 (1.0-12.0) % Eos % (Auto) 0.7 (0.0-7.0) % Baso % (Auto) 1.4 (0.0-2.0) % Lymph # (Auto) 0.86 L (1.50-4.80) K/mcL [place] # (Auto) 0.74 (0.10-0.90) K/mcL Eos # (Auto) 0.05 (0.00-0.70) K/mcL Baso # (Auto) 0.10 (0.00-0.20) K/mcL Absolute Neutrophils 5.53 (1.80-8.00) K/mcL PT 15.0 H (11.9-14.5) sec INR 1.1 (0.9-1.1) VBG Lactic Acid (0.5-2.0) mmol/L POC Sodium (133-145) mEq/L Sodium TNP POC Potassium (3.3-5.1) mEql/L Potassium TNP POC Chloride (96-108) mEq/L Chloride TNP Carbon Dioxide TNP POC Total CO2 (22-30) mmol/L Anion Gap TNP POC BUN (6-20) mg/dL BUN TNP Creatinine TNP POC Creatinine (0.6-1.2) mg/dL GFR Calculation TNP Glucose TNP POC Glucose (70-105) mg/dL Calcium TNP POC WB Ioniz Calcium (1.16-1.32) mmEq/L Total Bilirubin TNP AST TNP ALT TNP Alkaline Phosphatase TNP Total Creatine Kinase (24-170) U/L Troponin T Total Protein TNP Albumin TNP Globulin TNP Albumin/Globulin Ratio TNP Urine Color Urine Appearance (Clear) Urine pH (5.0-9.0) Ur Specific [place] (1.000-1.035) Urine Protein (Negative) mg/dL Urine Glucose (UA) (Negative) mg/dL Urine Ketones (Negative) mg/dL Urine Occult Blood (Negative) mg/dL Urine Nitrate (Negative) Urine Bilirubin (Negative) mg/dL Urine Urobilinogen mg/dL Ur Leukocyte Esterase (Negative) /ug Ur Culture Indicated? 11/16/20 11/16/20 11/16/20 Range/Units 12:43 12:43 12:43 WBC (4.5-11.0) K/mcL RBC (4.00-5.20) M/mcL Hgb (12.0-15.0) g/dL Hct (36.0-48.0) % POC Hct 33 L (36-48) % MCV (80.0-100.0) fL MCH (26.0-34.0) pg MCHC (31.0-36.0) g/dL RDW (11.5-14.5) % Plt Count (140-440) K/mcL MPV (7.4-10.4) fL Neut % (Auto) (38.0-78.0) % Lymph % (Auto) (15.0-49.0) % [place] % (Auto) (1.0-12.0) % Eos % (Auto) (0.0-7.0) % Baso % (Auto) (0.0-2.0) % Lymph # (Auto) (1.50-4.80) K/mcL [place] # (Auto) (0.10-0.90) K/mcL Eos # (Auto) (0.00-0.70) K/mcL Baso # (Auto) (0.00-0.20) K/mcL Absolute Neutrophils (1.80-8.00) K/mcL PT (11.9-14.5) sec INR (0.9-1.1) VBG Lactic Acid 1.0 (0.5-2.0) mmol/L POC Sodium 140 (133-145) mEq/L Sodium POC Potassium 4.0 (3.3-5.1) mEql/L Potassium POC Chloride 109 H (96-108) mEq/L Chloride Carbon Dioxide POC Total CO2 24 (22-30) mmol/L Anion Gap POC BUN 13 (6-20) mg/dL BUN Creatinine POC Creatinine 0.3 L (0.6-1.2) mg/dL GFR Calculation Glucose POC Glucose 86 (70-105) mg/dL Calcium POC WB Ioniz Calcium 1.07 L (1.16-1.32) mmEq/L Total Bilirubin AST ALT Alkaline Phosphatase Total Creatine Kinase (24-170) U/L Troponin T TNP Total Protein Albumin Globulin Albumin/Globulin Ratio Urine Color Urine Appearance (Clear) Urine pH (5.0-9.0) Ur Specific [place] (1.000-1.035) Urine Protein (Negative) mg/dL Urine Glucose (UA) (Negative) mg/dL Urine Ketones (Negative) mg/dL Urine Occult Blood (Negative) mg/dL Urine Nitrate (Negative) Urine Bilirubin (Negative) mg/dL Urine Urobilinogen mg/dL Ur Leukocyte Esterase (Negative) /ug Ur Culture Indicated? 11/16/20 11/16/20 11/16/20 Range/Units 12:43 13:24 14:10 WBC (4.5-11.0) K/mcL RBC (4.00-5.20) M/mcL Hgb (12.0-15.0) g/dL Hct (36.0-48.0) % POC Hct (36-48) % MCV (80.0-100.0) fL MCH (26.0-34.0) pg MCHC (31.0-36.0) g/dL RDW (11.5-14.5) % Plt Count (140-440) K/mcL MPV (7.4-10.4) fL Neut % (Auto) (38.0-78.0) % Lymph % (Auto) (15.0-49.0) % [place] % (Auto) (1.0-12.0) % Eos % (Auto) (0.0-7.0) % Baso % (Auto) (0.0-2.0) % Lymph # (Auto) (1.50-4.80) K/mcL [place] # (Auto) (0.10-0.90) K/mcL Eos # (Auto) (0.00-0.70) K/mcL Baso # (Auto) (0.00-0.20) K/mcL Absolute Neutrophils (1.80-8.00) K/mcL PT (11.9-14.5) sec INR (0.9-1.1) VBG Lactic Acid (0.5-2.0) mmol/L POC Sodium (133-145) mEq/L Sodium 135 POC Potassium (3.3-5.1) mEql/L Potassium 3.4 POC Chloride (96-108) mEq/L Chloride 103 Carbon Dioxide 21 L POC Total CO2 (22-30) mmol/L Anion Gap 11.0 POC BUN (6-20) mg/dL BUN 11 Creatinine 0.4 L POC Creatinine (0.6-1.2) mg/dL GFR Calculation 105 Glucose 82 POC Glucose (70-105) mg/dL Calcium 8.2 L POC WB Ioniz Calcium (1.16-1.32) mmEq/L Total Bilirubin 0.7 AST 21 ALT 12 Alkaline Phosphatase 53 Total Creatine Kinase 62 (24-170) U/L Troponin T Total Protein 6.4 Albumin 2.9 L Globulin 3.5 Albumin/Globulin Ratio 0.8 L Urine Color [place] Urine Appearance Clear (Clear) Urine pH 5.0 (5.0-9.0) Ur Specific [place] 1.020 (1.000-1.035) Urine Protein Negative (Negative) mg/dL Urine Glucose (UA) Negative (Negative) mg/dL Urine Ketones 5 A (Negative) mg/dL Urine Occult Blood Negative (Negative) mg/dL Urine Nitrate Negative (Negative) Urine Bilirubin Negative (Negative) mg/dL Urine Urobilinogen 4.0 A mg/dL Ur Leukocyte Esterase Negative (Negative) /ug Ur Culture Indicated? No 11/16/20 Range/Units 14:10 WBC (4.5-11.0) K/mcL RBC (4.00-5.20) M/mcL Hgb (12.0-15.0) g/dL Hct (36.0-48.0) % POC Hct (36-48) % MCV (80.0-100.0) fL MCH (26.0-34.0) pg MCHC (31.0-36.0) g/dL RDW (11.5-14.5) % Plt Count (140-440) K/mcL MPV (7.4-10.4) fL Neut % (Auto) (38.0-78.0) % Lymph % (Auto) (15.0-49.0) % [place] % (Auto) (1.0-12.0) % Eos % (Auto) (0.0-7.0) % Baso % (Auto) (0.0-2.0) % Lymph # (Auto) (1.50-4.80) K/mcL [place] # (Auto) (0.10-0.90) K/mcL Eos # (Auto) (0.00-0.70) K/mcL Baso # (Auto) (0.00-0.20) K/mcL Absolute Neutrophils (1.80-8.00) K/mcL PT (11.9-14.5) sec INR (0.9-1.1) VBG Lactic Acid (0.5-2.0) mmol/L POC Sodium (133-145) mEq/L Sodium POC Potassium (3.3-5.1) mEql/L Potassium POC Chloride (96-108) mEq/L Chloride Carbon Dioxide POC Total CO2 (22-30) mmol/L Anion Gap POC BUN (6-20) mg/dL BUN Creatinine POC Creatinine (0.6-1.2) mg/dL GFR Calculation Glucose POC Glucose (70-105) mg/dL Calcium POC WB Ioniz Calcium (1.16-1.32) mmEq/L Total Bilirubin AST ALT Alkaline Phosphatase Total Creatine Kinase (24-170) U/L Troponin T < 0.01 Total Protein Albumin Globulin Albumin/Globulin Ratio Urine Color Urine Appearance (Clear) Urine pH (5.0-9.0) Ur Specific [place] (1.000-1.035) Urine Protein (Negative) mg/dL Urine Glucose (UA) (Negative) mg/dL Urine Ketones (Negative) mg/dL Urine Occult Blood (Negative) mg/dL Urine Nitrate (Negative) Urine Bilirubin (Negative) mg/dL Urine Urobilinogen mg/dL Ur Leukocyte Esterase (Negative) /ug Ur Culture Indicated? Discharge Plan Patient/Caregiver Discharge Instructions Pt seen by PURCHASING ENGINEER/PA only: Yes Clinical Impression: Compression fracture, Generalized weakness, Recurrent falls, Intractable back pain, Minor head injury Patient Disposition: Xfer As Outpt/Obs ([facility]) Condition: Fair Follow up with: Ulises Olivier ARNP [Primary Care Provider] - Prescriptions: No Action ferrous sulfate 325 mg (65 mg iron) Tablet 325 mg PO QDAY RF: 0 metoprolol succinate 25 mg Tablet Extended Release 24 Hr 12.5 mg PO QDAY RF: 0 ergocalciferol (vitamin D2) 1,250 mcg (50,000 unit) Capsule 1,250 mcg PO WEEKLY RF: 0 polyethylene glycol 3350 [Miralax] 17 gram/dose Powder 17 g PO BID RF: 0 prednisone 10 mg Tablet 10 mg PO QDAY RF: 0 lidocaine [Lidocaine Pain Relief] 4 % Adhesive Patch,Medicated 2 patch TOPICAL Q24H PRN (Reason: Pain) RF: 0 azathioprine 50 mg Tablet 50 mg PO QDAY RF: 0 atorvastatin 40 mg Tablet 40 mg PO DAILY Qty: 30 RF: 0 aspirin 81 mg Tablet,Chewable 81 mg CHEWED DAILY Qty: 30 RF: 0 cephalexin [Keflex] 500 mg capsule 500 mg PO QID Qty: 30 RF: 0 sulfamethoxazole-trimethoprim [Bactrim DS] 800-160 mg tablet 1 tab PO BID Qty: 14 RF: 0 polyvinyl alcohol [Artificial Tears (polyvin alc)] 1.4 % Drops 1 drp OPHTHALMIC (EYE) QID PRN (Reason: Dry Eyes) RF: 0 famotidine 40 mg Tablet 40 mg PO QDAY RF: 0
[2020-11-16] MEDS ORDERED: 0.9 % SODIUM CHLORIDE 1,000 ML IV ONE (15:01)
[2020-11-16 15:07] LABS: ALT/SGPT 12 U/L (<40); AST/SGOT 21 U/L (<32); Albumin 2.9 gm/dL (3.2-5.2); Albumin/Globulin Ratio 0.8 (1.0-2.3); Alkaline Phosphatase 53 U/L (39-117); Bilirubin,Total 0.7 mg/dL (0.1-1.0); Blood Urea Nitrogen 11 mg/dL (8-23); Calcium 8.2 mg/dL (8.6-10.4); Carbon Dioxide 21 mmol/L (22-30); Chloride 103 mmol/L (96-108); Globulin 3.5 gm/dL (2.2-3.7); Glomerular Filtration Rate 105; Glucose 82 mg/dL (70-105)
--- NOTE | 2020-11-16 18:18 | Internal Med History&Physical ---
HPI History of Present Illness Patient information: Note initiated : 11/16/20 at 6:12 pm Service Date, if different from initiated Date: [] Patient: Jodie Cazares a 70 y/o F admitted on for back pain/fall. Chief Complaint: falls weakness, back pain, left arm, weakness History of present illness: Ms. Cazares is a 70 year old left-handed F from [place], lives alone and over the last few months has not been able to take care of herself due to progressive weakness. She was admitted in July for failure to thrive/generalized aches and not being able to take care of her self. For the last few days she has had multiple falls due to progressive weakness and unable to perform ADLs. She endorses to 6 out of 10 to 7 out of 10 back pain and also new onset left arm weakness over the last 2 to 3 weeks. She feels that symptoms started after an episode of shingles/? Scabies following an episode of intense itching. She saw wound care at [facility] and was treated with resolution of symptoms but her weakness persisted. She denied associated headache, fever, chest palpitation, incontinence but endorses to generalized weakness/weight loss/poor appetite/lethargy and inability to care of self. She does not have any help available at home. Initial work-up in the ER was consistent with multilevel DJD/subacute lumbar compression fractures. Patient was started on pain control and due to profound debility/deconditioning FTT/PEM leading to generalized weakness and multiple falls hospitalist service was consulted for admission. Biochemical profile was unremarkable At the time of my evaluation patient is alert and able to answer most of the questions. She endorses to history as above. She appears extremely frustrated with her situation. Review of systems 10 point review system was performed and is negative except for 1 discussed above PFSH PFSH All Active Problems (Updated 11/16/20 @ 19:32 by Karthik Dan MD) Acute hypokalemia (Acute) Chronic chest pain (Acute) Generalized weakness (Acute) Adult failure to thrive (Acute) Cellulitis (Acute) Compression fracture (Acute) Generalized weakness (Acute) Recurrent falls (Acute) Intractable back pain (Acute) Minor head injury (Acute) Constipation (Acute) Medical History (Updated 11/16/20 @ 19:32 by Karthik Dan MD) COPD (chronic obstructive pulmonary disease) (Acute) Liver problem (Acute) Scabies (Acute) Social History smoking status: Former smoker alcohol intake frequency: does not drink substance use type: does not use MEDS/ALLERGIES Home Medications and Allergies Home Medications Medication Instructions Recorded Confirmed Type azathioprine 50 mg PO QDAY 07/29/20 07/29/20 History ergocalciferol (vitamin D2) 1,250 mcg PO WEEKLY 07/29/20 07/29/20 History ferrous sulfate 325 mg PO QDAY 07/29/20 07/29/20 History lidocaine [Lidocaine Pain Relief] 2 patch TOPICAL Q24H PRN 07/29/20 07/29/20 History metoprolol succinate 12.5 mg PO QDAY 07/29/20 07/29/20 History polyethylene glycol 3350 [Miralax] 17 g PO BID 07/29/20 07/29/20 History prednisone 10 mg PO QDAY 07/29/20 07/29/20 History aspirin 81 mg CHEWED DAILY #30 tab 07/30/20 Rx atorvastatin 40 mg PO DAILY #30 tab 07/30/20 Rx cephalexin [Keflex] 500 mg PO QID #30 cap 11/05/20 Rx sulfamethoxazole-trimethoprim 1 tab PO BID #14 tab 11/05/20 Rx [Bactrim DS] famotidine 40 mg PO QDAY 11/16/20 11/16/20 History polyvinyl alcohol [Artificial 1 drp OPHTHALMIC (EYE) QID PRN 11/16/20 11/16/20 History Tears (polyvin alc)] Allergies Allergy/AdvReac Type Severity Reaction Status Date / Time aspirin Allergy Severe Numbness Verified 11/16/20 12:09 albuterol Allergy Unknown Unknown Verified 11/16/20 12:09 Benzonatate Allergy Unknown Unknown Verified 11/16/20 12:09 codeine Allergy Unknown Unknown Verified 11/16/20 12:09 doxycycline Allergy Unknown Unknown Verified 11/16/20 12:09 hydrocodone Allergy Unknown Unknown Verified 11/16/20 12:09 loratadine Allergy Unknown Unknown Verified 11/16/20 12:09 EXAM Constitutional Vitals: Temp Pulse Resp BP Pulse Ox 97.1 F 96 H 14 124/69 97 11/16/20 12:09 11/16/20 18:01 11/16/20 12:09 11/16/20 18:01 11/16/20 18:01 Frail elderly l/BMI 17 Head normocephalic Oral cavity moist No ear nose discharge Eye movement symmetrical, sunken eyes, temporal wasting Neck supple no lymphadenopathy S1-S2 regular Nonlabored breathing Nondistended nontender abdomen, lower software engineer backend to movement Left upper extremity limited abduction , sensation loss along the C6-C7 and T1 dermatome, poor lang path therapist strength, grade 3 strength overall, lower extremity no cyanosis clubbing or joint swelling Skin fold thickness 2 mm, excoriating lesion around the left arm/dorsum of forearm Psych anxious but no hallucination Neuro GCS 15 DATA Data Completed and Pending Labs: Labs from last 24 hours 11/16/20 11/16/20 11/16/20 14:10 14:10 13:24 WBC RBC Hgb Hct POC Hct MCV MCH MCHC RDW Plt Count MPV Neut % (Auto) Lymph % (Auto) Villalba % (Auto) Eos % (Auto) Baso % (Auto) Lymph # (Auto) Villalba # (Auto) Eos # (Auto) Baso # (Auto) Absolute Neutrophils PT INR VBG Lactic Acid POC Sodium Sodium 135 POC Potassium Potassium 3.4 POC Chloride Chloride 103 Carbon Dioxide 21 L POC Total CO2 Anion Gap 11.0 POC BUN BUN 11 Creatinine 0.4 L POC Creatinine GFR Calculation 105 Glucose 82 POC Glucose Calcium 8.2 L POC WB Ioniz Calcium Total Bilirubin 0.7 AST 21 ALT 12 Alkaline Phosphatase 53 Total Creatine Kinase Troponin T < 0.01 Total Protein 6.4 Albumin 2.9 L Globulin 3.5 Albumin/Globulin Ratio 0.8 L Urine Color Kiana Urine Appearance Clear Urine pH 5.0 Ur Specific Momence 1.020 Urine Protein Negative Urine Glucose (UA) Negative Urine Ketones 5 A Urine Occult Blood Negative Urine Nitrate Negative Urine Bilirubin Negative Urine Urobilinogen 4.0 A Ur Leukocyte Esterase Negative Ur Culture Indicated? No 11/16/20 11/16/20 11/16/20 12:43 12:43 12:43 WBC RBC Hgb Hct POC Hct 33 L MCV MCH MCHC RDW Plt Count MPV Neut % (Auto) Lymph % (Auto) Villalba % (Auto) Eos % (Auto) Baso % (Auto) Lymph # (Auto) Villalba # (Auto) Eos # (Auto) Baso # (Auto) Absolute Neutrophils PT INR VBG Lactic Acid POC Sodium 140 Sodium POC Potassium 4.0 Potassium POC Chloride 109 H Chloride Carbon Dioxide POC Total CO2 24 Anion Gap POC BUN 13 BUN Creatinine POC Creatinine 0.3 L GFR Calculation Glucose POC Glucose 86 Calcium POC WB Ioniz Calcium 1.07 L Total Bilirubin AST ALT Alkaline Phosphatase Total Creatine Kinase 62 Troponin T TNP Total Protein Albumin Globulin Albumin/Globulin Ratio Urine Color Urine Appearance Urine pH Ur Specific Momence Urine Protein Urine Glucose (UA) Urine Ketones Urine Occult Blood Urine Nitrate Urine Bilirubin Urine Urobilinogen Ur Leukocyte Esterase Ur Culture Indicated? 11/16/20 11/16/20 11/16/20 12:43 12:43 12:43 WBC RBC Hgb Hct POC Hct MCV MCH MCHC RDW Plt Count MPV Neut % (Auto) Lymph % (Auto) Villalba % (Auto) Eos % (Auto) Baso % (Auto) Lymph # (Auto) Villalba # (Auto) Eos # (Auto) Baso # (Auto) Absolute Neutrophils PT 15.0 H INR 1.1 VBG Lactic Acid 1.0 POC Sodium Sodium TNP POC Potassium Potassium TNP POC Chloride Chloride TNP Carbon Dioxide TNP POC Total CO2 Anion Gap TNP POC BUN BUN TNP Creatinine TNP POC Creatinine GFR Calculation TNP Glucose TNP POC Glucose Calcium TNP POC WB Ioniz Calcium Total Bilirubin TNP AST TNP ALT TNP Alkaline Phosphatase TNP Total Creatine Kinase Troponin T Total Protein TNP Albumin TNP Globulin TNP Albumin/Globulin Ratio TNP Urine Color Urine Appearance Urine pH Ur Specific Momence Urine Protein Urine Glucose (UA) Urine Ketones Urine Occult Blood Urine Nitrate Urine Bilirubin Urine Urobilinogen Ur Leukocyte Esterase Ur Culture Indicated? 11/16/20 12:43 WBC 7.3 RBC 3.16 L Hgb 11.3 L Hct 34.1 L POC Hct MCV 107.9 H MCH 35.8 H MCHC 33.1 RDW 14.3 Plt Count 210 MPV 9.9 Neut % (Auto) 75.9 Lymph % (Auto) 11.8 L Villalba % (Auto) 10.2 Eos % (Auto) 0.7 Baso % (Auto) 1.4 Lymph # (Auto) 0.86 L Villalba # (Auto) 0.74 Eos # (Auto) 0.05 Baso # (Auto) 0.10 Absolute Neutrophils 5.53 PT INR VBG Lactic Acid POC Sodium Sodium POC Potassium Potassium POC Chloride Chloride Carbon Dioxide POC Total CO2 Anion Gap POC BUN BUN Creatinine POC Creatinine GFR Calculation Glucose POC Glucose Calcium POC WB Ioniz Calcium Total Bilirubin AST ALT Alkaline Phosphatase Total Creatine Kinase Troponin T Total Protein Albumin Globulin Albumin/Globulin Ratio Urine Color Urine Appearance Urine pH Ur Specific Momence Urine Protein Urine Glucose (UA) Urine Ketones Urine Occult Blood Urine Nitrate Urine Bilirubin Urine Urobilinogen Ur Leukocyte Esterase Ur Culture Indicated? A/P Narrative A/P Narrative: * Generalised Weakness and falls, initiate physical therapy/gait and safety deon l/fall precaution * Lumbar compression fractures pain management on local lidocaine/acetaminophen/opioids * Adult failure to thrive/ Protein calorie Malnutrition-dietitian consult/protein calorie supplements * History of shingles/scabies??. Scabies prep/permethrin. Obtain notes from wound care * Left arm weakness, ? CVA versus traumatic upper brachial plexus injury secondary to fall, negative head CT, On ASA and statin * GERD on famotidine * Iron def Anemia stable * HTN continue metoprolol * Prophylaxis heparin PLAN * OBS admit * Diet Consult * Fall risk/gait and safety eval * Aggressive PT OT eval and treatment * Pre-existing medical condition management home meds * Scabies testing/permethrin Time Spent With Patient Time: Total time spent is greater than 50% in coordination of care (as documented) at patient's floor/unit and/or counseling patient:
--- NOTE | 2020-11-16 18:36 | Cat Scan Report ---
CLINICAL INFORMATION: Trauma COMPARISON: None. TECHNIQUE: 2.5 mm helical slices were obtained in the skull base to vertex. Following reconstruction, axial reformatted images were reviewed at bone and parenchymal windows. The exam was performed using radiation dose optimization techniques including, but not limited to, automated exposure control, adjustment of the mA and/or kV according to patient size and use of iterative reconstruction technique. FINDINGS: The ventricles, sulci, fissures, and cisterns are normal in size and configuration for age. No extra-axial fluid collections are identified. The cerebrum, brainstem and cerebellum are unremarkable. There is no evidence of hemorrhage, mass effect, or edema. Bone windows show no osseous abnormality. IMPRESSION: Normal head CT without contrast for age. Interpreted and Authenticated by: Pro Ryder 11/16/20
[2020-11-16] MEDS: 0.9 % SODIUM CHLORIDE 1,000 ML IV SCH (19:05)
[2020-11-16] MEDS: LIDOCAINE PATCH TOPICAL SCH (19:05)
--- NOTE | 2020-11-16 19:07 | Cat Scan Report ---
CLINICAL INFORMATION: Trauma COMPARISON: None. TECHNIQUE: 0.625 mm helical slices were obtained from the skull base through the superior T2 end plate, and following reconstruction, 2.5 mm sagittal, coronal and axial reformations were then processed. The exam was reviewed at bone and soft tissue windows. The exam was performed using radiation dose optimization techniques including, but not limited to, automated exposure control, adjustment of the mA and/or kV according to patient size and use of iterative reconstruction technique. FINDINGS: The cervical spine is anatomically aligned. There is no fracture or other osseous abnormality. The cervical cord is normal in contour and caliber without hemorrhage or other abnormality. The arytenoid cartilages are symmetrically calcified - likely a normal variant. No other soft tissue abnormality. At C2-3, C3-4 and C4-5, there are small broad disc protrusions which minimally impinge the thecal sac. The C5-6, C6-7 and C7-T1 disc levels are normal. IMPRESSION: 1. No fracture or posttraumatic change. 2. Mild degeneration Interpreted and Authenticated by: Pro Ryder 11/16/20
[2020-11-16] MEDS ORDERED: BISACODYL 10 MG SUPP.RECT PR PRN (19:15)
[2020-11-16] MEDS ORDERED: MELATONIN 3 MG TABLET PO PRN (19:15)
[2020-11-16] MEDS ORDERED: ONDANSETRON 4 MG/2 ML VIAL IV PRN (19:15)
[2020-11-16] MEDS ORDERED: POLYETHYLENE GLYCOL 3350 17 GM PACKET PO PRN (19:15)
[2020-11-16] MEDS ORDERED: MAGNESIUM SULFATE 2 GM/50 ML BAG IV PRN (19:15)
[2020-11-16] MEDS ORDERED: ACETAMINOPHEN 325 MG TABLET PO PRN (19:15)
[2020-11-16] MEDS ORDERED: POTASSIUM CHLORIDE 20 MEQ PACKET PO PRN (19:15)
[2020-11-16] MEDS ORDERED: ONDANSETRON 4 MG ODT TABLET SL PRN (19:15)
[2020-11-16] MEDS ORDERED: POTASSIUM CHLORIDE 40 MEQ in DEXTROSE 5% IN WATER 500 ML IV PRN (19:15)
--- NOTE | 2020-11-16 19:20 | Cat Scan Report ---
CLINICAL INFORMATION: Trauma COMPARISON: Abdomen and pelvic CT TECHNIQUE: Enteric contrast was withheld. 80 cc of Isovue-370 were injected intravenously, and 50 seconds later 2.5 mm helical slices were obtained from the lung apices through the subtrochanteric regions of the femurs. Following reconstruction, 2.5 mm sagittal, coronal and axial reformatted images were processed and reviewed at multiple windows and levels. 7 mm MIP reconstructions were obtained through the lungs to optimize nodule detection.The exam was performed using radiation dose optimization techniques including, but not limited to, automated exposure control, adjustment of the mA and/or kV according to patient size and use of iterative reconstruction technique. FINDINGS: Pulmonary parenchymal windows show the lungs are clear. There are no effusions. The mediastinal windows show the heart is mildly enlarged. Pulmonary arteries are normal diameter and well-opacified - no evidence of embolus. Thoracic aorta is normal diameter. There is no adenopathy in the mediastinal hilar or axillary region. No mediastinal air or hemorrhage. Esophagus is grossly normal. Thyroid is unremarkable. Abdominal images show the liver is diminutive with a vertical dimension 18 cm at mid clavicular line. In addition, hepatic attenuation is inhomogeneous with slight irregularity in the cortical surface suggestive of cirrhosis. The gallbladder is surgically absent. Common bile duct is normal caliber - 6 mm. Pneumobilia appreciated as before. 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 Left perirenal varices also appreciated. Spleen is normal in size. Pancreas, both kidneys and aorta are all normal in size, configuration and attenuation without focal lesion. There is mild edema within the mesentery, retroperitoneal and subcutaneous soft tissues throughout the abdomen and pelvis. The stomach, small large bowel are symmetrically patible with ileus. Moderate colonic stool appreciated. Images through the pelvis show urinary bladder is unremarkable. Anteflexed postmenopausal uterus is normal in size 6 x 3 cm the region the ovaries are normal. There is no free air or adenopathy. Bone windows show severe T7 compression fracture - almost certainly chronic. Chronic moderate T11 and mild T12 compression fractures are unchanged from the abdomen CT five months ago. IMPRESSION: 1. No definite posttraumatic change throughout the chest, abdomen or pelvis. A severe T7 compression fracture is anatomically aligned and almost certainly chronic. Moderate T11 and mild T12 compression fractures are stable from prior abdominal CT. 2. Diminutive liver with cortical irregularity and inhomogeneous attenuation suggesting cirrhosis. Moreover, there is a large varix in the paraesophageal region and also edema within the mesenteric, retroperitoneal fat and simultaneous fat. Consider: Please correlate with LFTs and clinical history for liver disease. Consider ultrasound-guided biopsy 3. Mild ileus with moderate colonic stool Interpreted and Authenticated by: Pro Ryder 11/16/20
[2020-11-16] MEDS ORDERED: CARBOXYMETHYLCELLULOSE SODIUM 1 EACH DROPER.GEL OU PRN (20:12)
[2020-11-16] MEDS: HEPARIN 5,000 UNIT/ML VIAL SQ SCH (20:41)
[2020-11-16] MEDS: CYANOCOBALAMIN (VITAMIN B-12) 500 MCG TABLET PO SCH (20:41)
[2020-11-16] MEDS: DOCUSATE SODIUM 100 MG CAPSULE PO SCH (20:42)
[2020-11-16] MEDS: SENNOSIDES/DOCUSATE SODIUM 1 TAB TABLET PO SCH (20:42)
[2020-11-16] MEDS: HYDROmorphone 0.5 MG/0.5 ML SYRINGE IV PRN (20:50)
[2020-11-16] MEDS: 0.9 % SODIUM CHLORIDE 10 ML SYRINGE IV SCH (21:32)
[2020-11-16] MEDS: traMADol 50 MG TABLET PO PRN (22:44)
[2020-11-17] MEDS: 0.9 % SODIUM CHLORIDE 1,000 ML IV SCH ×3 (00:41→22:28)
[2020-11-17] MEDS: 0.9 % SODIUM CHLORIDE 10 ML SYRINGE IV SCH ×3 (04:18→20:56)
[2020-11-17] MEDS: traMADol 50 MG TABLET PO PRN (04:26)
[2020-11-17 06:07] LABS: Basophils % (Auto) 1.5 % (0.0-2.0); Eosinophils # (Auto) 0.23 K/mcL (0.00-0.70); Eosinophils % (Auto) 3.4 % (0.0-7.0); Hematocrit 30.5 % (36.0-48.0); Hemoglobin 9.9 g/dL (12.0-15.0); Lymphocytes # (Auto) 0.77 K/mcL (1.50-4.80); Lymphocytes % (Auto) 11.3 % (15.0-49.0); Mean Cell Volume 108.5 fL (80.0-100.0); Mean Corpuscular HGB Conc 32.5 g/dL (31.0-36.0); Monocytes # (Auto) 0.69 K/mcL (0.10-0.90); Monocytes % (Auto) 10.1 % (1.0-12.0); Neutrophils % (Auto) 73.7 % (38.0-78.0); Platelet Count 187 K/mcL (140-440); RBC 2.81 M/mcL (4.00-5.20); Red Cell Distribution Width 14.5 % (11.5-14.5); WBC 6.8 K/mcL (4.5-11.0)
[2020-11-17] MEDS: HYDROmorphone 0.5 MG/0.5 ML SYRINGE IV PRN (06:10)
[2020-11-17 06:34] LABS: ALT/SGPT 12 U/L (<40); AST/SGOT 26 U/L (<32); Albumin 2.6 gm/dL (3.2-5.2); Albumin/Globulin Ratio 0.8 (1.0-2.3); Alkaline Phosphatase 65 U/L (39-117); Bilirubin,Direct < 0.2 mg/dL (<0.3); Bilirubin,Total 0.5 mg/dL (0.1-1.0); Blood Urea Nitrogen 8 mg/dL (8-23); Calcium 7.9 mg/dL (8.6-10.4); Carbon Dioxide 21 mmol/L (22-30); Chloride 105 mmol/L (96-108); Globulin 3.4 gm/dL (2.2-3.7); Glomerular Filtration Rate 115; Glucose 81 mg/dL (70-105); Lactate Dehydrogenase 249 U/L (135-225); Phosphorous 2.6 mg/dL (2.5-4.5); Triglycerides 58 mg/dL (<150); Uric Acid 4.3 mg/dL (2.5-8.0)
[2020-11-17] MEDS: DOCUSATE SODIUM 100 MG CAPSULE PO SCH ×2 (08:51→20:50)
[2020-11-17] MEDS: HEPARIN 5,000 UNIT/ML VIAL SQ SCH ×2 (08:51→20:50)
[2020-11-17] MEDS: CYANOCOBALAMIN (VITAMIN B-12) 500 MCG TABLET PO SCH ×2 (08:51→20:50)
[2020-11-17] MEDS ORDERED: THIAMINE 100 MG TABLET PO SCH (09:00)
[2020-11-17] MEDS ORDERED: FOLIC ACID 1 MG TABLET PO SCH (09:00)
[2020-11-17] MEDS ORDERED: FAMOTIDINE 20 MG TABLET PO SCH (09:00)
[2020-11-17] MEDS ORDERED: MULTIVIT,THER IRON,CA,FA & MIN 1 TABLET PO SCH (09:00)
[2020-11-17] MEDS: ACETAMINOPHEN 650 MG/65 ML BAG IV PRN ×2 (09:01→18:48)
--- NOTE | 2020-11-17 10:08 | Internal Med Progress Note ---
SUBJECTIVE Subjective Patient information: Note initiated : 11/17/20 at 10:03 am Service Date, if different from initiated Date: [] Patient: Jodie Cazares 70 y/o F admitted on 11/16/20 for back pain/fall. Chief Complaint: [] Interval history: Ms. Cazares is a 70 year old left-handed F from [place], lives alone and over the last few months has not been able to take care of herself due to progressive weakness. She was admitted in July for failure to thrive/generalized aches and not being able to take care of her self. For the last few days she has had multiple falls due to progressive weakness and unable to perform ADLs. She endorses to 6 out of 10 to 7 out of 10 back pain and also new onset left arm weakness over the last 2 to 3 weeks. She feels that symptoms started after an episode of shingles/? Scabies following an episode of intense itching. She saw wound care at [facility] and was treated with resolution of symptoms but her weakness persisted. She denied associated headache, fever, chest palpitation, incontinence but end orses to generalized weakness/weight loss/poor appetite/lethargy and inability to care of self. She does not have any help available at home. Initial work-up in the ER was consistent with multilevel DJD/subacute lumbar compression fractures. Patient was started on pain control and due to profound debility/deconditioning FTT/PEM leading to generalized weakness and multiple falls hospitalist service was consulted for admission. Biochemical profile was unremarkable At the time of my evaluation patient is alert and able to answer most of the questions. She endorses to history as above. She appears extremely frustrated with her situation. 11/17-patient doing well overnight. Ongoing therapy/consults per dietitian and rehab. Await wound care notes. Lucid alert and respond to commands. Macrocytic anemia on multivitamins. Constitutional Vitals: Vital Signs Temp Pulse Resp BP Pulse Ox 98.3 F 91 H 16 112/69 98 11/17/20 09:01 11/17/20 06:35 11/17/20 06:36 11/17/20 06:35 11/17/20 06:36 Period Temp Pulse Resp BP Sys/Frias Pulse Ox Last 24 Hr 97.1 F-99.7 F 91-102 14-18 93-142/59-80 96-100 Intake and Output 11/16/20 11/17/20 11/17/20 21:59 05:59 13:59 Intake Total 1360 880 120 Output Total 900 100 Balance 1360 -20 20 Weight 35.652 kg Generalized weakness/left upper monoplegia No anxiety Nonlabored breathing Intake & Output: Intake & Output 11/16/20 11/17/20 11/17/20 21:59 05:59 13:59 Intake Total 1360 880 120 Output Total 900 100 Balance 1360 -20 20 Weight 35.652 kg Intake: IV 1000 280 Sodium Chloride 0.9% 1,000 ml @ 1000 280 50 mls/hr IV .Q20H [facility] Rx#: [id number] Oral 360 600 120 Output: Urine Catheter Amount 900 100 Other: Meal Dinner Breakfast Percent of Meal Consumed 50% 10 Feeding Ability Assist with Tray Set Up Independent Urine Appearance Clear Clear Uretheral (Casarez) Clear Clear Urine Color Bright Yellow Dark Yellow Uretheral (Casarez) Bright Yellow Bright Yellow Urine Odor Normal Uretheral (Casarez) Normal Normal OBJ DATA Labs CBC & Chem 7: 11/17/20 05:00 11/17/20 05:00 Labs: Abnormal Lab Results 11/17/20 11/17/20 11/16/20 05:00 05:00 14:10 RBC 2.81 L Hgb 9.9 L Hct 30.5 L POC Hct MCV 108.5 H MCH 35.2 H Lymph % (Auto) 11.3 L Lymph # (Auto) 0.77 L PT POC Chloride Carbon Dioxide 21 L 21 L Creatinine 0.3 L 0.4 L POC Creatinine Calcium 7.9 L 8.2 L POC WB Ioniz Calcium Lactate Dehydrogenase 249 H Albumin 2.6 L 2.9 L Albumin/Globulin Ratio 0.8 L 0.8 L Urine Ketones Urine Urobilinogen 11/16/20 11/16/20 11/16/20 13:24 12:43 12:43 RBC Hgb Hct POC Hct 33 L MCV MCH Lymph % (Auto) Lymph # (Auto) PT 15.0 H POC Chloride 109 H Carbon Dioxide Creatinine POC Creatinine 0.3 L Calcium POC WB Ioniz Calcium 1.07 L Lactate Dehydrogenase Albumin Albumin/Globulin Ratio Urine Ketones 5 A Urine Urobilinogen 4.0 A 11/16/20 12:43 RBC 3.16 L Hgb 11.3 L Hct 34.1 L POC Hct MCV 107.9 H MCH 35.8 H Lymph % (Auto) 11.8 L Lymph # (Auto) 0.86 L PT POC Chloride Carbon Dioxide Creatinine POC Creatinine Calcium POC WB Ioniz Calcium Lactate Dehydrogenase Albumin Albumin/Globulin Ratio Urine Ketones Urine Urobilinogen Meds: Medications Acetaminophen (Tylenol) 650 mg PO Q4-6HP PRN; Protocol PRN Reason: Per Pain Protocol/Fever > 101 Artificial Tears (Refresh Celluvisc) 1 each OU QIDP PRN PRN Reason: Dry Eyes Bisacodyl (Dulcolax) 10 mg CA Q2-3DAYS PRN PRN Reason: Constipation Cyanocobalamin (Vitamin B-12) 1,000 mcg PO BID [facility] Stop: 11/21/20 09:01 Last Admin: 11/17/20 08:51 Dose: 1,000 mcg Documented by: Docusate Sodium (Colace) 100 mg PO BID [facility] Last Admin: 11/17/20 08:51 Dose: 100 mg Documented by: Famotidine (Pepcid) 40 mg PO QDAY [facility] Last Admin: 11/17/20 08:51 Dose: 40 mg Documented by: Folic Acid (Folic Acid) 1 mg PO DAILY [facility] Last Admin: 11/17/20 08:51 Dose: 1 mg Documented by: Heparin Sodium (Porcine) (Heparin) 5,000 unit SQ Q12 [facility] Last Admin: 11/17/20 08:51 Dose: 5,000 unit Documented by: Hydromorphone HCl (Dilaudid) 0.25 - 0.5 mg IV Q4HP PRN; Protocol PRN Reason: Per Pain Protocol Last Admin: 11/17/20 06:10 Dose: 0.25 mg Documented by: Potassium Chloride 40 meq/ (Dextrose) 520 mls @ 130 mls/hr IV UD PRN PRN Reason: K+ = or < 3.5 Magnesium Sulfate (Magnesium Sulfate) 2 gm in 50 mls @ 50 mls/hr IV UD PRN PRN Reason: MG = or < 1.7 Sodium Chloride (Sodium Chloride 0.9%) 1,000 mls @ 50 mls/hr IV .Q20H [facility] Stop: 11/19/20 07:14 Last Admin: 11/17/20 00:41 Dose: 50 mls/hr Documented by: Acetaminophen (Ofirmev) 650 mg in 65 mls @ 130 mls/hr IV Q6HP PRN; Protocol PRN Reason: Per Pain Protocol/Fever > 101 Last Admin: 11/17/20 09:01 Dose: 130 mls/hr Documented by: Iron Carb/Multivit/Lorain/Folic Acid (Multivitamin W/Minerals) 1 tab PO DAILY [facility] Last Admin: 11/17/20 08:51 Dose: 1 tab Documented by: Lidocaine (Lidoderm) 1 patch TOPICAL DAILY@1000 [facility] Last Admin: 11/16/20 19:05 Dose: Not Given Documented by: Melatonin (Melatonin 3mg Tablet) 3 mg PO HSP PRN PRN Reason: Insomnia Ondansetron HCl (Zofran Odt) 4 mg SL Q4-6HP PRN; Protocol PRN Reason: Nausea And Vomiting Ondansetron HCl (Zofran) 4 mg IV Q4-6HP PRN; Protocol PRN Reason: Nausea And Vomiting Polyethylene Glycol (Miralax) 17 gm PO DAILYP PRN PRN Reason: Constipation Potassium Chloride (Klor-Con) 40 meq PO DAILYP PRN PRN Reason: K+ < 3.5 Senna/Docusate Sodium (Senna Plus Tablet) 1 tab PO HS [facility] Last Admin: 11/16/20 20:42 Dose: 1 tab Documented by: Sodium Chloride (Saline Flush) 10 ml IV Q8 [facility] Last Admin: 11/17/20 04:18 Dose: Not Given Documented by: Thiamine HCl (Vitamin B1) 100 mg PO DAILY [facility] Last Admin: 11/17/20 08:51 Dose: 100 mg Documented by: Tramadol HCl (Ultram) 50 mg PO Q4-6HP PRN; Protocol PRN Reason: Per Pain Protocol Last Admin: 11/17/20 04:26 Dose: 50 mg Documented by: A/P Narrative A/P Narrative: * Generalised Weakness and recurrent falls, continue physical therapy/gait and safety eval/maintain fall precaution * Lumbar compression fractures pain management on local lidocaine/acetaminophen/opioids * Adult failure to thrive/ Protein calorie Malnutrition-dietitian consult/protein calorie supplements * History of shingles/scabies??. Scabies prep/permethrin. Obtain notes from wound care * Left arm weakness, ? CVA versus traumatic upper brachial plexus injury secondary to fall, negative head CT, On ASA and statin * GERD on famotidine * Iron def Anemia stable * HTN continue metoprolol * Prophylaxis heparin PLAN * Continue therapy/dietary interventions * Maintain fall risk/gait and safety eval * Pre-existing medical condition management home meds * Scabies testing, obtain previous wound care notes Case management coordinate SNF transfer * Time Spent With Patient Time: Total time spent is greater than 50% in coordination of care (as documented) at patient's floor/unit and/or counseling patient: QUALITY Stroke Symptom Onset Unknown: No VTE Deep Vein Thrombosis/Pulmonary Embolism Present on Admission: No
[2020-11-17] MEDS: LIDOCAINE PATCH TOPICAL SCH (10:26)
[2020-11-17] MEDS: SENNOSIDES/DOCUSATE SODIUM 1 TAB TABLET PO SCH (20:50)
[2020-11-18] MEDS: ACETAMINOPHEN 650 MG/65 ML BAG IV PRN (06:00)
[2020-11-18] MEDS: 0.9 % SODIUM CHLORIDE 10 ML SYRINGE IV SCH ×4 (06:00→22:00)
[2020-11-18 06:25] LABS: Basophils # (Auto) 0.07 K/mcL (0.00-0.20); Basophils % (Auto) 0.4 % (0.0-2.0); Eosinophils # (Auto) 0.13 K/mcL (0.00-0.70); Eosinophils % (Auto) 0.8 % (0.0-7.0); Hemoglobin 11.3 g/dL (12.0-15.0); Lymphocytes % (Auto) 5.7 % (15.0-49.0); Mean Corpuscular HGB Conc 32.3 g/dL (31.0-36.0); Mean Platelet Volume 8.9 fL (7.4-10.4); Monocytes # (Auto) 1.01 K/mcL (0.10-0.90); Monocytes % (Auto) 6.4 % (1.0-12.0); Neutrophils % (Auto) 86.7 % (38.0-78.0); Platelet Count 184 K/mcL (140-440); RBC 3.21 M/mcL (4.00-5.20); Red Cell Distribution Width 14.5 % (11.5-14.5); WBC 15.7 K/mcL (4.5-11.0)
[2020-11-18 06:56] LABS: ALT/SGPT 10 U/L (<40); AST/SGOT 20 U/L (<32); Albumin 2.5 gm/dL (3.2-5.2); Albumin/Globulin Ratio 0.7 (1.0-2.3); Alkaline Phosphatase 87 U/L (39-117); Bilirubin,Direct 0.2 mg/dL (<0.3); Bilirubin,Total 0.7 mg/dL (0.1-1.0); Blood Urea Nitrogen 7 mg/dL (8-23); Calcium 7.8 mg/dL (8.6-10.4); Carbon Dioxide 22 mmol/L (22-30); Chloride 104 mmol/L (96-108); Globulin 3.4 gm/dL (2.2-3.7); Glomerular Filtration Rate 115; Glucose 96 mg/dL (70-105); Lactate Dehydrogenase 264 U/L (135-225); Phosphorous 2.2 mg/dL (2.5-4.5); Triglycerides 51 mg/dL (<150); Uric Acid 3.1 mg/dL (2.5-8.0)
[2020-11-18] MEDS ORDERED: 0.9 % SODIUM CHLORIDE 500 ML IV ONE ×2 (08:33→08:35)
--- NOTE | 2020-11-18 08:37 | Internal Med Progress Note ---
SUBJECTIVE Subjective Patient information: Note initiated : 11/18/20 at 8:34 am Service Date, if different from initiated Date: [] Patient: Jodie Cazares a 70 y/o F admitted on 11/16/20 for back pain/fall. Chief Complaint: [] Interval history: Ms. Cazares is a 70 year old left-handed F from [place], lives alone and over the last few months has not been able to take care of herself due to progressive weakness. She was admitted in July for failure to thrive/generalized aches and not being able to take care of her self. For the last few days she has had multiple falls due to progressive weakness and unable to perform ADLs. She endorses to 6 out of 10 to 7 out of 10 back pain and also new onset left arm weakness over the last 2 to 3 weeks. She feels that symptoms started after an episode of shingles/? Scabies following an episode of intense itching. She saw wound care at [facility] and was treated with resolution of symptoms but her weakness persisted. She denied associated headache, fever, chest palpitation, incontinence but endo rses to generalized weakness/weight loss/poor appetite/lethargy and inability to care of self. She does not have any help available at home. Initial work-up in the ER was consistent with multilevel DJD/subacute lumbar compression fractures. Patient was started on pain control and due to profound debility/deconditioning FTT/PEM leading to generalized weakness and multiple falls hospitalist service was consulted for admission. Biochemical profile was unremarkable At the time of my evaluation patient is alert and able to answer most of the questions. She endorses to history as above. She appears extremely frustrated with her situation. 11/17-patient doing well overnight. Ongoing therapy/consults per dietitian and rehab. Await wound care notes. Lucid alert and respond to commands. Macrocytic anemia on multivitamins. 11/18-patient complains of lightheadedness dizziness and chest pain. Stat chest imaging/troponin/lactic acid/EKG ordered. White count at 15.7. Started on crystalloid bolus following systolics mid 80s. High likelihood sepsis induced hypotension. Start hydrocortisone 50 in light of previous steroid use. Restart bolus/vasopressors if indicated. Transfer to ICU. Start empiric antibiotics on Rocephin/azithromycin. Constitutional Vitals: Vital Signs Temp Pulse Resp BP Pulse Ox 98.4 F 95 H 16 110/66 98 11/18/20 07:17 11/18/20 07:17 11/18/20 07:17 11/18/20 07:17 11/18/20 07:17 Period Temp Pulse Resp BP Sys/Frias Pulse Ox Last 24 Hr 97.2 F-99.8 F 65-98 16-20 91-118/58-74 96-99 Intake and Output 11/17/20 11/18/20 11/18/20 21:59 05:59 13:59 Intake Total 1545 585 Output Total 450 300 Balance 1095 285 Weight 39.372 kg Lightheaded tachycardic at 90s Systolics low 80s Anxious Nonlabored breathing Intake & Output: Intake & Output 11/17/20 11/18/20 11/18/20 21:59 05:59 13:59 Intake Total 1545 585 Output Total 450 300 Balance 1095 285 Weight 39.372 kg Intake: IV 1065 Sodium Chloride 0.9% 1,000 ml @ 1000 50 mls/hr IV .Q20H [facility] Rx#: [id number] Oral 480 585 Output: Urine Catheter Amount 300 Void Amount 450 Other: Meal Dinner Nourishment/Supplement Percent of Meal Consumed 25% 100% Feeding Ability Assist with Tray Set Up Independent Urine Appearance Clear Clear Uretheral (Casarez) Clear Urine Color Dark Yellow Dark Kiana Uretheral (Casarez) Dark Kiana Stool Size Small Stool Color Brown Stool Consistency Formed OBJ DATA Labs CBC & Chem 7: 11/18/20 05:09 11/18/20 05:09 Labs: Abnormal Lab Results 11/18/20 11/18/20 11/17/20 05:09 05:09 05:00 WBC 15.7 H RBC 3.21 L Hgb 11.3 L Hct 35.0 L POC Hct MCV 109.0 H MCH 35.2 H Neut % (Auto) 86.7 H Lymph % (Auto) 5.7 L Lymph # (Auto) 0.90 L Daniels # (Auto) 1.01 H Absolute Neutrophils 13.58 H PT POC Chloride Carbon Dioxide 21 L BUN 7 L Creatinine 0.3 L 0.3 L POC Creatinine Calcium 7.8 L 7.9 L POC WB Ioniz Calcium Phosphorus 2.2 L Lactate Dehydrogenase 264 H 249 H Albumin 2.5 L 2.6 L Albumin/Globulin Ratio 0.7 L 0.8 L Urine Ketones Urine Urobilinogen 11/17/20 11/16/20 11/16/20 05:00 14:10 13:24 WBC RBC 2.81 L Hgb 9.9 L Hct 30.5 L POC Hct MCV 108.5 H MCH 35.2 H Neut % (Auto) Lymph % (Auto) 11.3 L Lymph # (Auto) 0.77 L Daniels # (Auto) Absolute Neutrophils PT POC Chloride Carbon Dioxide 21 L BUN Creatinine 0.4 L POC Creatinine Calcium 8.2 L POC WB Ioniz Calcium Phosphorus Lactate Dehydrogenase Albumin 2.9 L Albumin/Globulin Ratio 0.8 L Urine Ketones 5 A Urine Urobilinogen 4.0 A 11/16/20 11/16/20 11/16/20 12:43 12:43 12:43 WBC RBC 3.16 L Hgb 11.3 L Hct 34.1 L POC Hct 33 L MCV 107.9 H MCH 35.8 H Neut % (Auto) Lymph % (Auto) 11.8 L Lymph # (Auto) 0.86 L Daniels # (Auto) Absolute Neutrophils PT 15.0 H POC Chloride 109 H Carbon Dioxide BUN Creatinine POC Creatinine 0.3 L Calcium POC WB Ioniz Calcium 1.07 L Phosphorus Lactate Dehydrogenase Albumin Albumin/Globulin Ratio Urine Ketones Urine Urobilinogen Meds: Medications Acetaminophen (Tylenol) 650 mg PO Q4-6HP PRN; Protocol PRN Reason: Per Pain Protocol/Fever > 101 Artificial Tears (Refresh Celluvisc) 1 each OU QIDP PRN PRN Reason: Dry Eyes Bisacodyl (Dulcolax) 10 mg OR Q2-3DAYS PRN PRN Reason: Constipation Cyanocobalamin (Vitamin B-12) 1,000 mcg PO BID [facility] Stop: 11/21/20 09:01 Last Admin: 11/17/20 20:50 Dose: 1,000 mcg Documented by: Docusate Sodium (Colace) 100 mg PO BID [facility] Last Admin: 11/17/20 20:50 Dose: 100 mg Documented by: Famotidine (Pepcid) 40 mg PO QDAY [facility] Last Admin: 11/17/20 08:51 Dose: 40 mg Documented by: Folic Acid (Folic Acid) 1 mg PO DAILY [facility] Last Admin: 11/17/20 08:51 Dose: 1 mg Documented by: Heparin Sodium (Porcine) (Heparin) 5,000 unit SQ Q12 [facility] Last Admin: 11/17/20 20:50 Dose: 5,000 unit Documented by: Hydrocortisone Sodium Succinate (Solu-Cortef) 50 mg IV Q8 [facility] Hydromorphone HCl (Dilaudid) 0.25 - 0.5 mg IV Q4HP PRN; Protocol PRN Reason: Per Pain Protocol Last Admin: 11/17/20 06:10 Dose: 0.25 mg Documented by: Potassium Chloride 40 meq/ (Dextrose) 520 mls @ 130 mls/hr IV UD PRN PRN Reason: K+ = or < 3.5 Magnesium Sulfate (Magnesium Sulfate) 2 gm in 50 mls @ 50 mls/hr IV UD PRN PRN Reason: MG = or < 1.7 Sodium Chloride (Sodium Chloride 0.9%) 1,000 mls @ 50 mls/hr IV .Q20H [facility] Stop: 11/19/20 07:14 Last Admin: 11/17/20 22:28 Dose: 50 mls/hr Documented by: Acetaminophen (Ofirmev) 650 mg in 65 mls @ 130 mls/hr IV Q6HP PRN; Protocol PRN Reason: Per Pain Protocol/Fever > 101 Last Admin: 11/18/20 06:00 Dose: 130 mls/hr Documented by: Sodium Chloride (Sodium Chloride 0.9%) 500 mls @ 0 mls/hr IV [facility] Stop: 11/18/20 08:34 Iron Carb/Multivit/[place]/Folic Acid (Multivitamin W/Minerals) 1 tab PO DAILY [facility] Last Admin: 11/17/20 08:51 Dose: 1 tab Documented by: Lidocaine (Lidoderm) 1 patch TOPICAL DAILY@1000 [facility] Last Admin: 11/17/20 10:26 Dose: 1 patch Documented by: Melatonin (Melatonin 3mg Tablet) 3 mg PO HSP PRN PRN Reason: Insomnia Ondansetron HCl (Zofran Odt) 4 mg SL Q4-6HP PRN; Protocol PRN Reason: Nausea And Vomiting Ondansetron HCl (Zofran) 4 mg IV Q4-6HP PRN; Protocol PRN Reason: Nausea And Vomiting Polyethylene Glycol (Miralax) 17 gm PO DAILYP PRN PRN Reason: Constipation Potassium Chloride (Klor-Con) 40 meq PO DAILYP PRN PRN Reason: K+ < 3.5 Senna/Docusate Sodium (Senna Plus Tablet) 1 tab PO HS [facility] Last Admin: 11/17/20 20:50 Dose: 1 tab Documented by: Sodium Chloride (Saline Flush) 10 ml IV Q8 [facility] Last Admin: 11/18/20 06:00 Dose: Not Given Documented by: Thiamine HCl (Vitamin B1) 100 mg PO DAILY [facility] Last Admin: 11/17/20 08:51 Dose: 100 mg Documented by: Tramadol HCl (Ultram) 50 mg PO Q4-6HP PRN; Protocol PRN Reason: Per Pain Protocol Last Admin: 11/17/20 04:26 Dose: 50 mg Documented by: A/P Narrative A/P Narrative: * Sepsis with hypotension unclear etiology-panculture/antibiotic coverage/crystalloid/pressors if indicated * Chest pain/lightheadedness rule out cardiac etiology with echocardiogram/troponins. EKG negative normal sinus * Generalized weakness and recurrent falls, ongoing physical therapy/gait and safety eval/maintain fall precaution * Lumbar compression fractures pain management on local lidocaine/acetamin ophen/opioids * Adult failure to thrive/ Protein calorie Malnutrition-on dietary supplements per dietitian * History of shingles-currently stable, no acute flare * Left arm weakness, ? CVA versus traumatic upper brachial plexus injury secondary to fall, negative head CT, On ASA and statin * GERD on famotidine * Iron def Anemia stable * HTN continue metoprolol * Prophylaxis heparin PLAN * Transfer to inpatient status/PCU for management of severe sepsis * Broad antibiotic coverage * Cardiac enzymes/hydrocortisone IV * Maintain fall risk/gait and safety eval * Pre-existing medical condition management home meds * Nutrition support/therapies Time Spent With Patient Time: Total time spent is greater than 50% in coordination of care (as documented) at patient's floor/unit and/or counseling patient: QUALITY Stroke Symptom Onset Unknown: No VTE Deep Vein Thrombosis/Pulmonary Embolism Present on Admission: No
[2020-11-18] MEDS ORDERED: ACETAMINOPHEN 650 MG/65 ML BAG IV PRN (08:58)
[2020-11-18] MEDS ORDERED: POTASSIUM CHLORIDE 40 MEQ in DEXTROSE 5% IN WATER 500 ML IV PRN (08:58)
[2020-11-18] MEDS ORDERED: MAGNESIUM SULFATE 2 GM/50 ML BAG IV PRN (08:58)
[2020-11-18] MEDS ORDERED: POTASSIUM CHLORIDE 20 MEQ PACKET PO PRN (08:58)
[2020-11-18] MEDS ORDERED: traMADol 50 MG TABLET PO PRN (08:58)
[2020-11-18] MEDS ORDERED: BISACODYL 10 MG SUPP.RECT PR PRN (08:58)
[2020-11-18] MEDS ORDERED: MELATONIN 3 MG TABLET PO PRN (08:58)
[2020-11-18] MEDS ORDERED: POLYETHYLENE GLYCOL 3350 17 GM PACKET PO PRN (08:58)
[2020-11-18] MEDS ORDERED: NOREPINEPHRINE BITARTRATE 16 MG in 0.9 % SODIUM CHLORIDE 234 ML IV PRN (08:58)
[2020-11-18] MEDS ORDERED: ACETAMINOPHEN 325 MG TABLET PO PRN (08:58)
[2020-11-18] MEDS ORDERED: CARBOXYMETHYLCELLULOSE SODIUM 1 EACH DROPER.GEL OU PRN (08:58)
[2020-11-18] MEDS ORDERED: ONDANSETRON 4 MG/2 ML VIAL IV PRN (08:58)
[2020-11-18] MEDS: 0.9 % SODIUM CHLORIDE 1,000 ML IV SCH (09:04)
--- NOTE | 2020-11-18 09:09 | XRay Report ---
CLINICAL INFORMATION: Interval Change COMPARISON: 07/29/2020 FINDINGS: Heart size, mediastinum and pulmonary vasculature are normal. Lungs are clear. No effusions. IMPRESSION: No acute cardiopulmonary disease. Stable Interpreted and Authenticated by: Pro Ryder 11/18/20
[2020-11-18] MEDS: HYDROmorphone 0.5 MG/0.5 ML SYRINGE IV PRN ×2 (09:18→20:46)
[2020-11-18] MEDS: cefTRIAXone 2 GM in DEXTROSE 5% IN WATER 50 ML IV SCH (09:19)
[2020-11-18] MEDS ORDERED: IOPAMIDOL 100 ML BOTTLE IV ONE (10:08)
[2020-11-18] MEDS: 0.9 % SODIUM CHLORIDE 250 ML IV SCH (10:41)
--- NOTE | 2020-11-18 10:45 | Cat Scan Report ---
CLINICAL INFORMATION: Chest pain COMPARISON: 11/16/2020. TECHNIQUE: 80ml of Isovue-370 were injected intravenously. Using SmartPrep to maximize pulmonary artery opacification, .625mm helical slices were obtained from the lung apices through the lung bases. Following reconstruction, 2.5 mm sagittal, coronal, and axial reformations were processed. The exam was reviewed at mediastinal, lung, and bone windows. The exam was performed using radiation dose optimization techniques including, but not limited to, automated exposure control, adjustment of the mA and/or kV according to patient size and use of iterative reconstruction technique. FINDINGS: Pulmonary parenchymal windows show a 4 mm benign subpulmonic lymph node in the superior segment left lower lobe adjacent to major fissure and minimal atelectasis in the posterior lower lobes. There are no infiltrates or effusions. Mediastinal windows show the pulmonary arteries are well-opacified and normal in caliber without evidence of embolus. The thoracic aorta is normal diameter with diffuse intimal thickening. There is no adenopathy in the mediastinal hilar or axillary regions. The esophagus is grossly normal. The heart is normal in size and configuration only minimal atherosclerotic plaque in the coronary arteries. The thyroid is unremarkable. Bone windows again show severe T7, moderate T11 and mild T12 compression fractures which are all chronic and unchanged. No other osseous abnormalities. IMPRESSION: 1. No evidence of pulmonary embolus or other acute process. 2. Severe T7, moderate T11 mild T11 compression fractures chronic and unchanged. Interpreted and Authenticated by: Pro Ryder 11/18/20
[2020-11-18] MEDS: HEPARIN 5,000 UNIT/ML VIAL SQ SCH ×2 (11:01→20:40)
[2020-11-18] MEDS: AZITHROMYCIN 500 MG in DEXTROSE 5% IN WATER 250 ML IV SCH (11:01)
[2020-11-18] MEDS: CYANOCOBALAMIN (VITAMIN B-12) 500 MCG TABLET PO SCH ×2 (11:01→20:39)
[2020-11-18] MEDS: THIAMINE 100 MG TABLET PO SCH (11:02)
[2020-11-18] MEDS: MULTIVIT,THER IRON,CA,FA & MIN 1 TABLET PO SCH (11:02)
[2020-11-18] MEDS: DOCUSATE SODIUM 100 MG CAPSULE PO SCH ×2 (11:02→20:46)
[2020-11-18] MEDS: FOLIC ACID 1 MG TABLET PO SCH (11:02)
[2020-11-18] MEDS: LIDOCAINE PATCH TOPICAL SCH (11:07)
[2020-11-18] MEDS: FAMOTIDINE 20 MG TABLET PO SCH (11:08)
[2020-11-18] MEDS: HYDROCORTISONE SOD SUCC 100 MG VIAL IV SCH (14:46)
[2020-11-18] MEDS: SENNOSIDES/DOCUSATE SODIUM 1 TAB TABLET PO SCH (20:39)
[2020-11-19] MEDS: HYDROCORTISONE SOD SUCC 100 MG VIAL IV SCH ×2 (00:14→05:41)
[2020-11-19] MEDS: 0.9 % SODIUM CHLORIDE 250 ML IV SCH ×3 (01:28→22:00)
[2020-11-19] MEDS: 0.9 % SODIUM CHLORIDE 10 ML SYRINGE IV SCH ×3 (05:54→21:00)
[2020-11-19] MEDS: 0.9 % SODIUM CHLORIDE 1,000 ML IV SCH ×2 (06:59→12:27)
[2020-11-19 07:57] LABS: Basophils # (Auto) 0.03 K/mcL (0.00-0.20); Basophils % (Auto) 0.2 % (0.0-2.0); Eosinophils # (Auto) 0 K/mcL (0.00-0.70); Eosinophils % (Auto) 0 % (0.0-7.0); Hematocrit 36.1 % (36.0-48.0); Lymphocytes # (Auto) 0.77 K/mcL (1.50-4.80); Lymphocytes % (Auto) 5.1 % (15.0-49.0); Mean Cell Volume 107.8 fL (80.0-100.0); Mean Corpuscular HGB Conc 33.2 g/dL (31.0-36.0); Mean Platelet Volume 9.9 fL (7.4-10.4); Monocytes # (Auto) 0.12 K/mcL (0.10-0.90); Monocytes % (Auto) 0.8 % (1.0-12.0); Neutrophils % (Auto) 93.9 % (38.0-78.0); Platelet Count 206 K/mcL (140-440); RBC 3.35 M/mcL (4.00-5.20); Red Cell Distribution Width 14.5 % (11.5-14.5); WBC 15.1 K/mcL (4.5-11.0)
--- NOTE | 2020-11-19 09:13 | Internal Med Progress Note ---
SUBJECTIVE Subjective Patient information: Note initiated : 11/19/20 at 9:10 am Service Date, if different from initiated Date: [] Patient: Jodie Cazares a 70 y/o F admitted on 11/18/20 for back pain/fall. Chief Complaint: [] Interval history: Ms. Cazares is a 70 year old left-handed F from [place], lives alone and over the last few months has not been able to take care of herself due to progressive weakness. She was admitted in July for failure to thrive/generalized aches and not being able to take care of her self. For the last few days she has had multiple falls due to progressive weakness and unable to perform ADLs. She endorses to 6 out of 10 to 7 out of 10 back pain and also new onset left arm weakness over the last 2 to 3 weeks. She feels that symptoms started after an episode of shingles/? Scabies following an episode of intense itching. She saw wound care at [facility] and was treated with resolution of symptoms but her weakness persisted. She denied associated headache, fever, chest palpitation, incontinence but endo rses to generalized weakness/weight loss/poor appetite/lethargy and inability to care of self. She does not have any help available at home. Initial work-up in the ER was consistent with multilevel DJD/subacute lumbar compression fractures. Patient was started on pain control and due to profound debility/deconditioning FTT/PEM leading to generalized weakness and multiple falls hospitalist service was consulted for admission. Biochemical profile was unremarkable At the time of my evaluation patient is alert and able to answer most of the questions. She endorses to history as above. She appears extremely frustrated with her situation. 11/17-patient doing well overnight. Ongoing therapy/consults per dietitian and rehab. Await wound care notes. Lucid alert and respond to commands. Macrocytic anemia on multivitamins. 11/18-patient complains of lightheadedness dizziness and chest pain. Stat chest imaging/troponin/lactic acid/EKG ordered. White count at 15.7. Started on crystalloid bolus following systolics mid 80s. High likelihood sepsis induced hypotension. Start hydrocortisone 50 in light of previous steroid use. Restart bolus/vasopressors if indicated. Transfer to ICU. Start empiric antibiotics on Rocephin/azithromycin. 11/19-patient doing a lot better. Improved chest pain. White count 15,000 slightly lower than previous day. CT chest negative for acute process or PE, creatinine 0.3, on dietary supplements/multivitamin and electrolyte replacement as indicated. Ongoing therapies. Anticipate discharge to SNF per case management. Systolics improved to 120s. Constitutional Vitals: Vital Signs Temp Pulse Resp BP Pulse Ox 97.8 F 93 H 31 H 122/71 98 11/19/20 08:09 11/19/20 08:09 11/19/20 08:09 11/19/20 08:09 11/19/20 08:09 Period Temp Pulse Resp BP Sys/Frias Pulse Ox Last 24 Hr 97.0 F-97.8 F 82-103 0-31 118-154/57-79 94-100 Intake and Output 11/18/20 11/19/20 11/19/20 21:59 05:59 13:59 Intake Total 240 550 Output Total 550 250 Balance -310 300 Weight 38.691 kg Alert oriented Nonlabored breathing Left hand weakness persistent No anxiety Intake & Output: Intake & Output 11/18/20 11/19/20 11/19/20 21:59 05:59 13:59 Intake Total 240 550 Output Total 550 250 Balance -310 300 Weight 38.691 kg Intake: Oral 240 550 Output: Urine Catheter Amount 550 250 Other: Meal Dinner Percent of Meal Consumed 25% Urine Appearance Clear Clear Uretheral (Casarez) Clear Clear Clear Urine Color Bright Yellow Bright Yellow Uretheral (Casarez) Bright Yellow Bright Yellow Bright Yellow # Bowel Movements 0 OBJ DATA Labs CBC & Chem 7: 11/19/20 04:59 11/19/20 04:59 Labs: Abnormal Lab Results 11/19/20 11/19/20 11/18/20 04:59 04:59 05:09 WBC 15.1 H RBC 3.35 L Hgb Hct POC Hct MCV 107.8 H MCH 35.8 H Neut % (Auto) 93.9 H Lymph % (Auto) 5.1 L [place] % (Auto) 0.8 L Lymph # (Auto) 0.77 L [place] # (Auto) Absolute Neutrophils 14.13 H PT POC Chloride Carbon Dioxide BUN 7 L Creatinine 0.3 L POC Creatinine Calcium 7.8 L POC WB Ioniz Calcium Phosphorus 2.2 L Lactate Dehydrogenase 264 H Albumin 2.5 L Albumin/Globulin Ratio 0.7 L Procalcitonin 0.13 H Urine Ketones Urine Urobilinogen 11/18/20 11/17/20 11/17/20 05:09 05:00 05:00 WBC 15.7 H RBC 3.21 L 2.81 L Hgb 11.3 L 9.9 L Hct 35.0 L 30.5 L POC Hct MCV 109.0 H 108.5 H MCH 35.2 H 35.2 H Neut % (Auto) 86.7 H Lymph % (Auto) 5.7 L 11.3 L [place] % (Auto) Lymph # (Auto) 0.90 L 0.77 L [place] # (Auto) 1.01 H Absolute Neutrophils 13.58 H PT POC Chloride Carbon Dioxide 21 L BUN Creatinine 0.3 L POC Creatinine Calcium 7.9 L POC WB Ioniz Calcium Phosphorus Lactate Dehydrogenase 249 H Albumin 2.6 L Albumin/Globulin Ratio 0.8 L Procalcitonin Urine Ketones Urine Urobilinogen 11/16/20 11/16/20 11/16/20 14:10 13:24 12:43 WBC RBC Hgb Hct POC Hct 33 L MCV MCH Neut % (Auto) Lymph % (Auto) [place] % (Auto) Lymph # (Auto) [place] # (Auto) Absolute Neutrophils PT POC Chloride 109 H Carbon Dioxide 21 L BUN Creatinine 0.4 L POC Creatinine 0.3 L Calcium 8.2 L POC WB Ioniz Calcium 1.07 L Phosphorus Lactate Dehydrogenase Albumin 2.9 L Albumin/Globulin Ratio 0.8 L Procalcitonin Urine Ketones 5 A Urine Urobilinogen 4.0 A 11/16/20 11/16/20 12:43 12:43 WBC RBC 3.16 L Hgb 11.3 L Hct 34.1 L POC Hct MCV 107.9 H MCH 35.8 H Neut % (Auto) Lymph % (Auto) 11.8 L [place] % (Auto) Lymph # (Auto) 0.86 L [place] # (Auto) Absolute Neutrophils PT 15.0 H POC Chloride Carbon Dioxide BUN Creatinine POC Creatinine Calcium POC WB Ioniz Calcium Phosphorus Lactate Dehydrogenase Albumin Albumin/Globulin Ratio Procalcitonin Urine Ketones Urine Urobilinogen Meds: Medications Acetaminophen (Tylenol) 650 mg PO Q4-6HP PRN; Protocol PRN Reason: Per Pain Protocol/Fever > 101 Last Admin: 11/19/20 06:58 Dose: 650 mg Documented by: Artificial Tears (Refresh Celluvisc) 1 each OU QIDP PRN PRN Reason: Dry Eyes Bisacodyl (Dulcolax) 10 mg SD Q2-3DAYS PRN PRN Reason: Constipation Cyanocobalamin (Vitamin B-12) 1,000 mcg PO BID [facility] Stop: 11/21/20 09:01 Last Admin: 11/18/20 20:39 Dose: 1,000 mcg Documented by: Docusate Sodium (Colace) 100 mg PO BID [facility] Last Admin: 11/18/20 20:46 Dose: 100 mg Documented by: Famotidine (Pepcid) 40 mg PO QDAY [facility] Last Admin: 11/18/20 11:08 Dose: 40 mg Documented by: Folic Acid (Folic Acid) 1 mg PO DAILY [facility] Last Admin: 11/18/20 11:02 Dose: 1 mg Documented by: Heparin Sodium (Porcine) (Heparin) 5,000 unit SQ Q12 [facility] Last Admin: 11/18/20 20:40 Dose: 5,000 unit Documented by: Hydrocortisone Sodium Succinate (Solu-Cortef) 50 mg IV Q8H [facility] Last Admin: 11/19/20 05:41 Dose: 50 mg Documented by: Hydromorphone HCl (Dilaudid) 0.25 - 0.5 mg IV Q4HP PRN; Protocol PRN Reason: Per Pain Protocol Last Admin: 11/18/20 20:46 Dose: 0.25 mg Documented by: Sodium Chloride (Sodium Chloride 0.9%) 1,000 mls @ 50 mls/hr IV .Q20H [facility] Stop: 11/20/20 20:57 Last Admin: 11/19/20 06:59 Dose: Not Given Documented by: Acetaminophen (Ofirmev) 650 mg in 65 mls @ 130 mls/hr IV Q6HP PRN; Protocol PRN Reason: Per Pain Protocol/Fever > 101 Magnesium Sulfate (Magnesium Sulfate) 2 gm in 50 mls @ 50 mls/hr IV UD PRN PRN Reason: MG = or < 1.7 Potassium Chloride 40 meq/ (Dextrose) 520 mls @ 130 mls/hr IV UD PRN PRN Reason: K+ = or < 3.5 Azithromycin 500 mg/ Dextrose 250 mls @ 250 mls/hr IV DAILY@1100 [place]; Protocol Stop: 11/20/20 11:59 Last Infusion: 11/18/20 12:33 Dose: Infused Documented by: Ceftriaxone Sodium 2 gm/ (Dextrose) 50 mls @ 100 mls/hr IV DAILY [facility]; Protocol Last Infusion: 11/18/20 10:42 Dose: Infused Documented by: Norepinephrine Bitartrate 16 (mg/ Sodium Chloride) 250 mls @ 9.375 mls/hr IV Q24HP PRN; Protocol PRN Reason: MAP <65 Sodium Chloride (Sodium Chloride 0.9%) 250 mls @ 20 mls/hr IV .[id number] [facility] Last Admin: 11/19/20 01:28 Dose: Not Given Documented by: Iron Carb/Multivit/[place]/Folic Acid (Multivitamin W/Minerals) 1 tab PO DAILY [facility] Last Admin: 11/18/20 11:02 Dose: 1 tab Documented by: Lidocaine (Lidoderm) 1 patch TOPICAL DAILY@1000 [facility] Last Admin: 11/18/20 11:07 Dose: 1 patch Documented by: Melatonin (Melatonin 3mg Tablet) 3 mg PO HSP PRN PRN Reason: Insomnia Ondansetron HCl (Zofran Odt) 4 mg SL Q4-6HP PRN; Protocol PRN Reason: Nausea And Vomiting Ondansetron HCl (Zofran) 4 mg IV Q4-6HP PRN; Protocol PRN Reason: Nausea And Vomiting Polyethylene Glycol (Miralax) 17 gm PO DAILYP PRN PRN Reason: Constipation Potassium Chloride (Klor-Con) 40 meq PO DAILYP PRN PRN Reason: K+ < 3.5 Senna/Docusate Sodium (Senna Plus Tablet) 1 tab PO HS [facility] Last Admin: 11/18/20 20:39 Dose: 1 tab Documented by: Sodium Chloride (Saline Flush) 10 ml IV Q8 [facility] Last Admin: 11/19/20 05:54 Dose: Not Given Documented by: Thiamine HCl (Vitamin B1) 100 mg PO DAILY [facility] Last Admin: 11/18/20 11:02 Dose: 100 mg Documented by: Tramadol HCl (Ultram) 50 mg PO Q4-6HP PRN; Protocol PRN Reason: Per Pain Protocol A/P Narrative A/P Narrative: * Sepsis with hypotension unclear etiology-clinically improving on antibiotic coverage. Await cultures. Systolics much improved. * Chest pain/lightheadedness negative cardiac enzymes/CT angio for PE. No EKG changes. No telemetry events. Fully resolved * Generalized weakness and recurrent falls, continue physical therapy/gait and safety eval/maintain fall precaution. Will likely transition to SNF * Lumbar compression fractures pain management on local lidocaine/acetaminophen/opioids, well controlled * Adult failure to thrive/ Protein calorie Malnutrition-continue dietary supplements per dietitian * History of shingles-currently stable, no acute flare * Left arm weakness, ? CVA versus traumatic upper brachial plexus injury secondary to fall, negative head CT, On ASA and statin * GERD on famotidine * Iron def Anemia stable * HTN continue metoprolol * Prophylaxis heparin PLAN * Case management coordinate SNF transfer * De-escalate antibiotic coverage * DC hydrocortisone * Maintain fall risk/gait and safety eval * Pre-existing medical condition management home meds * Nutrition support/therapies Time Spent With Patient Time: Total time spent is greater than 50% in coordination of care (as documented) at patient's floor/unit and/or counseling patient: QUALITY Stroke Symptom Onset Unknown: No VTE Deep Vein Thrombosis/Pulmonary Embolism Present on Admission: No
[2020-11-19] MEDS: MULTIVIT,THER IRON,CA,FA & MIN 1 TABLET PO SCH (09:18)
[2020-11-19] MEDS: DOCUSATE SODIUM 100 MG CAPSULE PO SCH ×2 (09:18→21:00)
[2020-11-19] MEDS: CYANOCOBALAMIN (VITAMIN B-12) 500 MCG TABLET PO SCH ×2 (09:18→21:00)
[2020-11-19] MEDS: FAMOTIDINE 20 MG TABLET PO SCH (09:18)
[2020-11-19] MEDS: THIAMINE 100 MG TABLET PO SCH (09:19)
[2020-11-19] MEDS: cefTRIAXone 2 GM in DEXTROSE 5% IN WATER 50 ML IV SCH (09:19)
[2020-11-19] MEDS: FOLIC ACID 1 MG TABLET PO SCH (09:19)
[2020-11-19] MEDS: HEPARIN 5,000 UNIT/ML VIAL SQ SCH ×2 (09:20→21:00)
[2020-11-19 09:22] LABS: ALT/SGPT 9 U/L (<40); AST/SGOT 16 U/L (<32); Albumin 2.5 gm/dL (3.2-5.2); Albumin/Globulin Ratio 0.6 (1.0-2.3); Alkaline Phosphatase 73 U/L (39-117); Bilirubin,Direct < 0.2 mg/dL (<0.3); Bilirubin,Total 0.5 mg/dL (0.1-1.0); Blood Urea Nitrogen 6 mg/dL (8-23); Calcium 8.2 mg/dL (8.6-10.4); Carbon Dioxide 23 mmol/L (22-30); Chloride 101 mmol/L (96-108); Glomerular Filtration Rate 115; Glucose 115 mg/dL (70-105); Lactate Dehydrogenase 229 U/L (135-225); Phosphorous 2.4 mg/dL (2.5-4.5); Triglycerides 59 mg/dL (<150); Uric Acid 2.5 mg/dL (2.5-8.0)
[2020-11-19] MEDS: LIDOCAINE PATCH TOPICAL SCH (09:41)
[2020-11-19] MEDS: AZITHROMYCIN 500 MG in DEXTROSE 5% IN WATER 250 ML IV SCH (10:19)
[2020-11-19] MEDS: ONDANSETRON 4 MG ODT TABLET SL PRN (10:42)
[2020-11-19] MEDS: HYDROmorphone 0.5 MG/0.5 ML SYRINGE IV PRN (19:47)
[2020-11-19] MEDS: SENNOSIDES/DOCUSATE SODIUM 1 TAB TABLET PO SCH (21:00)
[2020-11-20 06:05] LABS: Basophils # (Auto) 0.05 K/mcL (0.00-0.20); Basophils % (Auto) 0.2 % (0.0-2.0); Eosinophils # (Auto) 0.04 K/mcL (0.00-0.70); Eosinophils % (Auto) 0.2 % (0.0-7.0); Hematocrit 30.2 % (36.0-48.0); Lymphocytes # (Auto) 1.05 K/mcL (1.50-4.80); Lymphocytes % (Auto) 5.2 % (15.0-49.0); Mean Cell Volume 107.1 fL (80.0-100.0); Mean Corpuscular HGB Conc 33.1 g/dL (31.0-36.0); Mean Platelet Volume 9.4 fL (7.4-10.4); Monocytes # (Auto) 1.39 K/mcL (0.10-0.90); Monocytes % (Auto) 6.9 % (1.0-12.0); Neutrophils % (Auto) 87.5 % (38.0-78.0); Platelet Count 212 K/mcL (140-440); RBC 2.82 M/mcL (4.00-5.20); Red Cell Distribution Width 14.7 % (11.5-14.5); WBC 20.2 K/mcL (4.5-11.0)
[2020-11-20] MEDS: 0.9 % SODIUM CHLORIDE 1,000 ML IV SCH ×2 (06:38→16:58)
[2020-11-20] MEDS: 0.9 % SODIUM CHLORIDE 10 ML SYRINGE IV SCH ×3 (06:47→21:39)
[2020-11-20 07:57] LABS: ALT/SGPT 9 U/L (<40); AST/SGOT 17 U/L (<32); Albumin 2.3 gm/dL (3.2-5.2); Albumin/Globulin Ratio 0.7 (1.0-2.3); Alkaline Phosphatase 70 U/L (39-117); Bilirubin,Direct < 0.2 mg/dL (<0.3); Bilirubin,Total 0.3 mg/dL (0.1-1.0); Blood Urea Nitrogen 10 mg/dL (8-23); Calcium 7.8 mg/dL (8.6-10.4); Carbon Dioxide 18 mmol/L (22-30); Chloride 103 mmol/L (96-108); Globulin 3.2 gm/dL (2.2-3.7); Glomerular Filtration Rate 115; Glucose 84 mg/dL (70-105); Lactate Dehydrogenase 242 U/L (135-225); Phosphorous 2.5 mg/dL (2.5-4.5); Triglycerides 61 mg/dL (<150); Uric Acid 2.8 mg/dL (2.5-8.0)
[2020-11-20] MEDS: FAMOTIDINE 20 MG TABLET PO SCH (08:28)
[2020-11-20] MEDS: CYANOCOBALAMIN (VITAMIN B-12) 500 MCG TABLET PO SCH ×2 (08:28→21:39)
[2020-11-20] MEDS: THIAMINE 100 MG TABLET PO SCH (08:29)
[2020-11-20] MEDS: cefTRIAXone 2 GM in DEXTROSE 5% IN WATER 50 ML IV SCH (08:29)
[2020-11-20] MEDS: DOCUSATE SODIUM 100 MG CAPSULE PO SCH ×2 (08:29→21:39)
[2020-11-20] MEDS: MULTIVIT,THER IRON,CA,FA & MIN 1 TABLET PO SCH (08:29)
[2020-11-20] MEDS: HEPARIN 5,000 UNIT/ML VIAL SQ SCH (08:29)
[2020-11-20] MEDS: FOLIC ACID 1 MG TABLET PO SCH (08:29)
[2020-11-20] MEDS: LIDOCAINE PATCH TOPICAL SCH (08:30)
[2020-11-20] MEDS: HYDROmorphone 0.5 MG/0.5 ML SYRINGE IV PRN ×2 (08:44→18:50)
[2020-11-20] MEDS: ONDANSETRON 4 MG ODT TABLET SL PRN (08:50)
[2020-11-20] MEDS: 0.9 % SODIUM CHLORIDE 250 ML IV SCH ×2 (10:39→21:56)
[2020-11-20] MEDS: AZITHROMYCIN 500 MG in DEXTROSE 5% IN WATER 250 ML IV SCH (10:39)
--- NOTE | 2020-11-20 14:46 | Internal Med Progress Note ---
SUBJECTIVE Subjective Patient information: Note initiated : 11/20/20 at 2:44 pm Service Date, if different from initiated Date: [] Patient: Jodie Cazares a 70 y/o F admitted on 11/18/20 for back pain/fall. Chief Complaint: [] Interval history: Ms. Cazares is a 70 year old left-handed F from [place], lives alone and over the last few months has not been able to take care of herself due to progressive weakness. She was admitted in July for failure to thrive/generalized aches and not being able to take care of her self. For the last few days she has had multiple falls due to progressive weakness and unable to perform ADLs. She endorses to 6 out of 10 to 7 out of 10 back pain and also new onset left arm weakness over the last 2 to 3 weeks. She feels that symptoms started after an episode of shingles/? Scabies following an episode of intense itching. She saw wound care at [facility] and was treated with resolution of symptoms but her weakness persisted. She denied associated headache, fever, chest palpitation, incontinence but endo rses to generalized weakness/weight loss/poor appetite/lethargy and inability to care of self. She does not have any help available at home. Initial work-up in the ER was consistent with multilevel DJD/subacute lumbar compression fractures. Patient was started on pain control and due to profound debility/deconditioning FTT/PEM leading to generalized weakness and multiple falls hospitalist service was consulted for admission. Biochemical profile was unremarkable At the time of my evaluation patient is alert and able to answer most of the questions. She endorses to history as above. She appears extremely frustrated with her situation. 11/17-patient doing well overnight. Ongoing therapy/consults per dietitian and rehab. Await wound care notes. Lucid alert and respond to commands. Macrocytic anemia on multivitamins. 11/18-patient complains of lightheadedness dizziness and chest pain. Stat chest imaging/troponin/lactic acid/EKG ordered. White count at 15.7. Started on crystalloid bolus following systolics mid 80s. High likelihood sepsis induced hypotension. Start hydrocortisone 50 in light of previous steroid use. Restart bolus/vasopressors if indicated. Transfer to ICU. Start empiric antibiotics on Rocephin/azithromycin. 11/19-patient doing a lot better. Improved chest pain. White count 15,000 slightly lower than previous day. CT chest negative for acute process or PE, creatinine 0.3, on dietary supplements/multivitamin and electrolyte replacement as indicated. Ongoing therapies. Anticipate discharge to SNF per case management. Systolics improved to 120s. 11/20-patient complains of persistent left-sided upper abdomen/lower chest pain. Worsening on palpation around the sternal area and on the rib. No crepitus. No evidence of fractures noted on multiple chest imaging. White count at 20,000. No clear source identified. On antibiotic coverage. Remains afebrile. Blood cultures negative so far. COVID-19 negative. Phosphorus improved 2.5. Start PPI for possible gastritis.. Constitutional Vitals: Vital Signs Temp Pulse Resp BP Pulse Ox 97.5 F 92 H 12 111/61 99 11/20/20 12:00 11/20/20 14:32 11/20/20 14:32 11/20/20 14:00 11/20/20 14:32 Period Temp Pulse Resp BP Sys/Frias Pulse Ox Last 24 Hr 97.3 F-99.9 F 85-112 0-31 99-119/58-94 91-100 Intake and Output 11/20/20 11/20/20 11/20/20 05:59 13:59 21:59 Intake Total 100 Output Total 200 Balance -100 Tenderness left hypochondrium/epigastrium and over sternum Anxious Nonlabored breathing Frail and thin elderly Intake & Output: Intake & Output 11/20/20 11/20/20 11/20/20 05:59 13:59 21:59 Intake Total 100 Output Total 200 Balance -100 Intake: Oral 100 Output: Void Amount 200 OBJ DATA Labs CBC & Chem 7: 11/20/20 04:47 11/20/20 04:47 Labs: Abnormal Lab Results 11/20/20 11/20/20 11/20/20 04:47 04:47 04:47 WBC 20.2 H RBC 2.82 L Hgb 10.0 L Hct 30.2 L MCV 107.1 H MCH 35.5 H RDW 14.7 H Neut % (Auto) 87.5 H Lymph % (Auto) 5.2 L [place] % (Auto) Lymph # (Auto) 1.05 L [place] # (Auto) 1.39 H Absolute Neutrophils 17.62 H Carbon Dioxide 18 L BUN Creatinine 0.3 L Glucose Calcium 7.8 L Phosphorus Lactate Dehydrogenase 242 H Total Protein 5.5 L Albumin 2.3 L Globulin Albumin/Globulin Ratio 0.7 L Procalcitonin 0.12 H 11/19/20 11/19/20 11/19/20 07:59 04:59 04:59 WBC 15.1 H RBC 3.35 L Hgb Hct MCV 107.8 H MCH 35.8 H RDW Neut % (Auto) 93.9 H Lymph % (Auto) 5.1 L [place] % (Auto) 0.8 L Lymph # (Auto) 0.77 L [place] # (Auto) Absolute Neutrophils 14.13 H Carbon Dioxide BUN 6 L Creatinine 0.3 L Glucose 115 H Calcium 8.2 L Phosphorus 2.4 L Lactate Dehydrogenase 229 H Total Protein Albumin 2.5 L Globulin 4.0 H Albumin/Globulin Ratio 0.6 L Procalcitonin 0.13 H 11/18/20 11/18/20 05:09 05:09 WBC 15.7 H RBC 3.21 L Hgb 11.3 L Hct 35.0 L MCV 109.0 H MCH 35.2 H RDW Neut % (Auto) 86.7 H Lymph % (Auto) 5.7 L [place] % (Auto) Lymph # (Auto) 0.90 L [place] # (Auto) 1.01 H Absolute Neutrophils 13.58 H Carbon Dioxide BUN 7 L Creatinine 0.3 L Glucose Calcium 7.8 L Phosphorus 2.2 L Lactate Dehydrogenase 264 H Total Protein Albumin 2.5 L Globulin Albumin/Globulin Ratio 0.7 L Procalcitonin Meds: Medications Acetaminophen (Tylenol) 650 mg PO Q4-6HP PRN; Protocol PRN Reason: Per Pain Protocol/Fever > 101 Last Admin: 11/19/20 06:58 Dose: 650 mg Documented by: Artificial Tears (Refresh Celluvisc) 1 each OU QIDP PRN PRN Reason: Dry Eyes Bisacodyl (Dulcolax) 10 mg IA Q2-3DAYS PRN PRN Reason: Constipation Cyanocobalamin (Vitamin B-12) 1,000 mcg PO BID [place] Stop: 11/21/20 09:01 Last Admin: 11/20/20 08:28 Dose: 1,000 mcg Documented by: Docusate Sodium (Colace) 100 mg PO BID [facility] Last Admin: 11/20/20 08:29 Dose: 100 mg Documented by: Famotidine (Pepcid) 40 mg PO QDAY [facility] Last Admin: 11/20/20 08:28 Dose: 40 mg Documented by: Folic Acid (Folic Acid) 1 mg PO DAILY [facility] Last Admin: 11/20/20 08:29 Dose: 1 mg Documented by: Heparin Sodium (Porcine) (Heparin) 5,000 unit SQ Q12 [facility] Last Admin: 11/20/20 08:29 Dose: 5,000 unit Documented by: Hydromorphone HCl (Dilaudid) 0.25 - 0.5 mg IV Q4HP PRN; Protocol PRN Reason: Per Pain Protocol Last Admin: 11/20/20 08:44 Dose: 0.25 mg Documented by: Sodium Chloride (Sodium Chloride 0.9%) 1,000 mls @ 50 mls/hr IV .Q20H [facility] Stop: 11/20/20 20:57 Last Admin: 11/20/20 06:38 Dose: Not Given Documented by: Acetaminophen (Ofirmev) 650 mg in 65 mls @ 130 mls/hr IV Q6HP PRN; Protocol PRN Reason: Per Pain Protocol/Fever > 101 Magnesium Sulfate (Magnesium Sulfate) 2 gm in 50 mls @ 50 mls/hr IV UD PRN PRN Reason: MG = or < 1.7 Potassium Chloride 40 meq/ (Dextrose) 520 mls @ 130 mls/hr IV UD PRN PRN Reason: K+ = or < 3.5 Ceftriaxone Sodium 2 gm/ (Dextrose) 50 mls @ 100 mls/hr IV DAILY [facility]; Protocol Last Admin: 11/20/20 08:29 Dose: 100 mls/hr Documented by: Norepinephrine Bitartrate 16 (mg/ Sodium Chloride) 250 mls @ 9.375 mls/hr IV Q24HP PRN; Protocol PRN Reason: MAP <65 Sodium Chloride (Sodium Chloride 0.9%) 250 mls @ 20 mls/hr IV .[id number] [facility] Last Admin: 11/20/20 10:39 Dose: Not Given Documented by: Iron Carb/Multivit/[place]/Folic Acid (Multivitamin W/Minerals) 1 tab PO DAILY [facility] Last Admin: 11/20/20 08:29 Dose: 1 tab Documented by: Lidocaine (Lidoderm) 1 patch TOPICAL DAILY@1000 [facility] Last Admin: 11/20/20 08:30 Dose: 1 patch Documented by: Melatonin (Melatonin 3mg Tablet) 3 mg PO HSP PRN PRN Reason: Insomnia Ondansetron HCl (Zofran Odt) 4 mg SL Q4-6HP PRN; Protocol PRN Reason: Nausea And Vomiting Last Admin: 11/20/20 08:50 Dose: 4 mg Documented by: Ondansetron HCl (Zofran) 4 mg IV Q4-6HP PRN; Protocol PRN Reason: Nausea And Vomiting Polyethylene Glycol (Miralax) 17 gm PO DAILYP PRN PRN Reason: Constipation Potassium Chloride (Klor-Con) 40 meq PO DAILYP PRN PRN Reason: K+ < 3.5 Senna/Docusate Sodium (Senna Plus Tablet) 1 tab PO HS [facility] Last Admin: 11/19/20 21:00 Dose: 1 tab Documented by: Sodium Chloride (Saline Flush) 10 ml IV Q8 [facility] Last Admin: 11/20/20 06:47 Dose: Not Given Documented by: Thiamine HCl (Vitamin B1) 100 mg PO DAILY [facility] Last Admin: 11/20/20 08:29 Dose: 100 mg Documented by: Tramadol HCl (Ultram) 50 mg PO Q4-6HP PRN; Protocol PRN Reason: Per Pain Protocol A/P Narrative A/P Narrative: * Sepsis with hypotension etiology remains in question. However hypotension resolved. Worsening leukocytosis at 20,000(possibly related to hydrocortisone). Cultures negative so far. On empiric antibiotics * Upper abdominal pain- negative CE/CT angio for PE. No EKG changes. Surgery consult rule out splenic injury/occult etiology. Start PPI for gastritis. No evidence of empyema/pneumonia on chest CT * Generalized weakness and recurrent falls, ongoing physical therapy/gait and safety eval/maintain fall precaution. Case management coordinating SNF * Lumbar compression fractures pain management on local lidocaine/ acetaminophen/opioids, well controlled * Adult failure to thrive/ Protein calorie Malnutrition-continue dietary supplements per dietitian * History of shingles-currently stable, no acute flare * Left arm weakness, ? CVA versus traumatic upper brachial plexus injury secondary to fall, negative head CT, On ASA and statin * GERD on famotidine * Iron def Anemia stable * HTN continue metoprolol * Prophylaxis heparin PLAN * Start PPI * Continue antibiotics * Surgery consult * Maintain fall risk/gait and safety eval * Pre-existing medical condition management home meds * Nutrition support/therapies * Case management coordinate SNF transfer Time Spent With Patient Time: Total time spent is greater than 50% in coordination of care (as do cumented) at patient's floor/unit and/or counseling patient: QUALITY Stroke Symptom Onset Unknown: No VTE Deep Vein Thrombosis/Pulmonary Embolism Present on Admission: No
[2020-11-20] MEDS: PANTOPRAZOLE 40 MG VIAL IV SCH (16:56)
--- NOTE | 2020-11-20 20:59 | General Surgery Consult Note ---
[facility] Data of Consult Consult date: 11/20/20 Requesting physician: Karthik Dan Primary Care Provider: MARIA DEL CARMEN Samuel Consult Narrative Chief complaint: fragility, failure to thrive, weight loss History of present illness: 70-year-old female admitted on November 28 via the emergency room. She gives a history of loss of appetite with progressive weight loss over the past month. She has nausea daily and has had some problems with constipation. She has epigastric pain which is relieved with milk. She does not know if she has had a prior history of ulcer or gastritis. She has at least a 40 pound weight loss over the past 3 years. She has an occasional episode of bleeding on the toilet tissue with constipated stool. She has not had black stool. She does not use nonsteroidal anti-inflammatory drugs. She has a history of frequent falls and has been seen in the emergency room multiple times for this. She states that her falls are due to generalized weakness. She generally falls to the left and has injured her back and shoulder and hip. She has multiple subacute compression fractures of her vertebrae. cc:: CC: Karthik Dan Constitutional Constitutional: Present anorexia, fatigue, frequent falls, lethargy, malaise, weakness and weight loss (40 pound weight loss over 3 years) EENT Eyes: Absent loss of vision Ears: Present decreased hearing; Absent tinnitus Nose, mouth and throat: Present abnormal hearing, dizziness, dysphagia and neck pain Cardiovascular Cardiovascular: Present pedal edema and rapid heart rate; Absent chest pain with activity, claudication and dyspnea on exertion Respiratory Respiratory: Present cough and dyspnea on exertion Gastrointestinal Gastrointestinal: Present abdominal pain, belching, change in bowel habits, constipation, dyspepsia, nausea and vomiting; Absent melena Genitourinary Genitourinary: Absent difficulty voiding Musculoskeletal Musculoskeletal: Present abnormal gait, arthralgias, muscle cramps, muscle weakness, myalgias, neck pain and stiffness Integumentary Integumentary: Present change in hair and dry skin; Absent pruritus, rash, skin ulcer and unusual bruising Neurological Neurological: Present abnormal gait, abnormal hearing, dizziness, frequent falls and weakness Psychiatric Psychiatric: Present change in appetite and memory loss Endocrine Endocrine: Present fatigue Hematologic/Lymphatic Hematologic/Lymphatic: Absent easy bleeding, easy bruising and lymphadenopathy Allergic/Immunologic Allergic/Immunologic: Absent tongue swelling, throat swelling, uticaria and wheezing PFSH PFSH All Active Problems (Updated 11/20/20 @ 20:58 by Jerod Valle MD) Epigastric abdominal pain (Acute) Unexplained weight loss (Acute) Frailty (Acute) Acute hypokalemia (Acute) Chronic chest pain (Acute) Generalized weakness (Acute) Adult failure to thrive (Acute) Cellulitis (Acute) Compression fracture (Acute) Generalized weakness (Acute) Recurrent falls (Acute) Intractable back pain (Acute) Minor head injury (Acute) Constipation (Acute) Medical History COPD (chronic obstructive pulmonary disease) (Acute) Liver problem (Acute) Scabies (Acute) Social History smoking status: Former smoker alcohol intake frequency: does not drink substance use type: does not use MEDS/ALLERGIES Home Medications and Allergies Home Medications Medication Instructions Recorded Confirmed Type azathioprine 50 mg PO QDAY 07/29/20 11/18/20 History ergocalciferol (vitamin D2) 1,250 mcg PO WEEKLY 07/29/20 11/18/20 History ferrous sulfate 325 mg PO QDAY 07/29/20 11/18/20 History metoprolol succinate 12.5 mg PO QDAY 07/29/20 11/18/20 History polyethylene glycol 3350 [Miralax] 17 g PO BID 07/29/20 11/18/20 History prednisone 10 mg PO QDAY 07/29/20 11/18/20 History famotidine 40 mg PO QDAY 11/16/20 11/16/20 History polyvinyl alcohol [Artificial 1 drp OPHTHALMIC (EYE) QID PRN 11/16/20 11/16/20 History Tears (polyvin alc)] acetaminophen 650 mg PO Q4-6HP PRN 11/18/20 11/18/20 History gabapentin 100 mg PO TID 11/18/20 11/18/20 History lidocaine 2 patch TOPICAL QDAY 11/18/20 11/18/20 History sodium phosphates [Fleet Enema] 118 ml [place] DAILYP PRN 11/18/20 11/18/20 History Allergies Allergy/AdvReac Type Severity Reaction Status Date / Time albuterol Allergy Unknown Unknown Verified 11/16/20 12:09 Benzonatate Allergy Unknown Unknown Verified 11/16/20 12:09 codeine Allergy Unknown Unknown Verified 11/16/20 12:09 doxycycline Allergy Unknown Unknown Verified 11/16/20 12:09 hydrocodone Allergy Unknown Unknown Verified 11/16/20 12:09 loratadine Allergy Unknown Unknown Verified 11/16/20 12:09 aspirin AdvReac Mild Numbness Verified 11/19/20 07:25 Physical Examination Vital Signs Vital signs: Temp Pulse Resp BP Pulse Ox 99 F 87 22 116/59 99 11/20/20 20:01 11/20/20 20:01 11/20/20 20:01 11/20/20 20:01 11/20/20 20:01 General physical appearance General physical exam: moderate distress, moderate pain, cachectic and chronically ill Eyes Eye exam: PERRL and normal ocular movement; negative icteric ENT ENT exam: decreased hearing Head Head exam IM: Present atraumatic, normal inspection and normocephalic Neck Neck exam: no masses, no bruits, trachea midline, no lymphadenopathy and no venous distension Cardiovascular Cardiovascular exam IM: Present normal rate and rhythm; Absent systolic murmur (grade 2 systolic murmur) Intensity IM: 2/6 Respiratory Respiratory exam: normal expansion, normal respiratory effort and clear to auscultation Abdomen Abdomen: Present soft and tender (epigastric tenderness; mild left lower rib cage tenderness laterally) Integumentary Integumentary: Present no rash, no growths and no abnormal pigmentation Neurologic Neurologic: Present normal sensation Musculoskeletal Musculoskeletal: Present other (abnormal gait due to weakness) Psychiatric Psychiatric: Present oriented to time, oriented to person, oriented to place and speech is normal Results Labs Result diagrams: 11/20/20 04:47 11/20/20 04:47 Labs: Abnormal lab results 11/20/20 11/20/20 11/20/20 Range/Units 04:47 04:47 04:47 WBC 20.2 H (4.5-11.0) K/mcL RBC 2.82 L (4.00-5.20) M/mcL Hgb 10.0 L (12.0-15.0) g/dL Hct 30.2 L (36.0-48.0) % MCV 107.1 H (80.0-100.0) fL MCH 35.5 H (26.0-34.0) pg RDW 14.7 H (11.5-14.5) % Neut % (Auto) 87.5 H (38.0-78.0) % Lymph % (Auto) 5.2 L (15.0-49.0) % Lymph # (Auto) 1.05 L (1.50-4.80) K/mcL [place] # (Auto) 1.39 H (0.10-0.90) K/mcL Absolute Neutrophils 17.62 H (1.80-8.00) K/mcL Carbon Dioxide 18 L (22-30) mmol/L Creatinine 0.3 L (0.6-1.1) mg/dL Calcium 7.8 L (8.6-10.4) mg/dL Lactate Dehydrogenase 242 H (135-225) U/L Total Protein 5.5 L (5.9-8.4) gm/dL Albumin 2.3 L (3.2-5.2) gm/dL Albumin/Globulin Ratio 0.7 L (1.0-2.3) Procalcitonin 0.12 H (<0.10) ng/mL Diabetes panel 11/20/20 Range/Units 04:47 Sodium 136 (133-145) mmol/L Potassium 3.8 (3.3-5.1) mmol/L Chloride 103 (96-108) mmol/L Carbon Dioxide 18 L (22-30) mmol/L BUN 10 (8-23) mg/dL Creatinine 0.3 L (0.6-1.1) mg/dL Glucose 84 (70-105) mg/dL Calcium 7.8 L (8.6-10.4) mg/dL AST 17 (<32) U/L ALT 9 (<40) U/L Alkaline Phosphatase 70 (39-117) U/L Total Protein 5.5 L (5.9-8.4) gm/dL Albumin 2.3 L (3.2-5.2) gm/dL Triglycerides 61 (<150) mg/dL Calcium panel 11/20/20 Range/Units 04:47 Calcium 7.8 L (8.6-10.4) mg/dL Phosphorus 2.5 (2.5-4.5) mg/dL Albumin 2.3 L (3.2-5.2) gm/dL Pituitary panel 11/20/20 Range/Units 04:47 Sodium 136 (133-145) mmol/L Potassium 3.8 (3.3-5.1) mmol/L Chloride 103 (96-108) mmol/L Carbon Dioxide 18 L (22-30) mmol/L BUN 10 (8-23) mg/dL Creatinine 0.3 L (0.6-1.1) mg/dL Glucose 84 (70-105) mg/dL Calcium 7.8 L (8.6-10.4) mg/dL Adrenal panel 11/20/20 Range/Units 04:47 Sodium 136 (133-145) mmol/L Potassium 3.8 (3.3-5.1) mmol/L Chloride 103 (96-108) mmol/L Carbon Dioxide 18 L (22-30) mmol/L BUN 10 (8-23) mg/dL Creatinine 0.3 L (0.6-1.1) mg/dL Glucose 84 (70-105) mg/dL Calcium 7.8 L (8.6-10.4) mg/dL Total Bilirubin 0.3 (0.1-1.0) mg/dL AST 17 (<32) U/L ALT 9 (<40) U/L Alkaline Phosphatase 70 (39-117) U/L Total Protein 5.5 L (5.9-8.4) gm/dL Albumin 2.3 L (3.2-5.2) gm/dL All other labs normal. A/P Assessment and plan (1) Frailty: Status: Acute (2) Unexplained weight loss: Status: Acute (3) Recurrent falls: Status: Acute (4) Epigastric abdominal pain: Status: Acute (5) Generalized weakness: Status: Acute (6) Compression fracture: Status: Acute (7) Adult failure to thrive: Status: Acute (8) Constipation: Status: Acute Qualifiers: Constipation type: unspecified constipation type Qualified Code(s): K59.00 - Constipation, unspecified Narrative A/P Narrative: patient is improved since admission. She is counseled for upper endoscopy which will be performed tomorrow. Time Spent With Patient Time: Total time spent is greater than 50% in coordination of care (as documented) at patient's floor/unit and/or counseling patient:
[2020-11-20] MEDS: SENNOSIDES/DOCUSATE SODIUM 1 TAB TABLET PO SCH (21:39)
[2020-11-21] MEDS: 0.9 % SODIUM CHLORIDE 10 ML SYRINGE IV SCH ×3 (06:12→22:09)
[2020-11-21 06:44] LABS: Basophils # (Auto) 0.06 K/mcL (0.00-0.20); Basophils % (Auto) 0.7 % (0.0-2.0); Eosinophils % (Auto) 2.2 % (0.0-7.0); Hematocrit 31.7 % (36.0-48.0); Hemoglobin 10.2 g/dL (12.0-15.0); Lymphocytes # (Auto) 0.93 K/mcL (1.50-4.80); Lymphocytes % (Auto) 10.1 % (15.0-49.0); Mean Cell Volume 110.1 fL (80.0-100.0); Mean Corpuscular HGB Conc 32.2 g/dL (31.0-36.0); Mean Platelet Volume 8.9 fL (7.4-10.4); Monocytes # (Auto) 0.87 K/mcL (0.10-0.90); Monocytes % (Auto) 9.5 % (1.0-12.0); Neutrophils % (Auto) 77.5 % (38.0-78.0); Platelet Count 194 K/mcL (140-440); RBC 2.88 M/mcL (4.00-5.20); WBC 9.2 K/mcL (4.5-11.0)
[2020-11-21] MEDS: PANTOPRAZOLE 40 MG VIAL IV SCH ×2 (07:35→17:21)
[2020-11-21 07:37] LABS: ALT/SGPT 10 U/L (<40); AST/SGOT 27 U/L (<32); Albumin 2.2 gm/dL (3.2-5.2); Albumin/Globulin Ratio 0.6 (1.0-2.3); Alkaline Phosphatase 69 U/L (39-117); Bilirubin,Direct < 0.2 mg/dL (<0.3); Bilirubin,Total 0.5 mg/dL (0.1-1.0); Blood Urea Nitrogen 8 mg/dL (8-23); Calcium 7.8 mg/dL (8.6-10.4); Carbon Dioxide 23 mmol/L (22-30); Chloride 107 mmol/L (96-108); Globulin 3.4 gm/dL (2.2-3.7); Glomerular Filtration Rate 105; Glucose 77 mg/dL (70-105); Lactate Dehydrogenase 312 U/L (135-225); Phosphorous 2.7 mg/dL (2.5-4.5); Triglycerides 69 mg/dL (<150); Uric Acid 2.9 mg/dL (2.5-8.0)
[2020-11-21] MEDS ORDERED: GLYCOPYRROLATE 0.2 MG/ML VIAL IV ONE (08:15)
[2020-11-21] MEDS ORDERED: LIDOCAINE HCL/PF 100 MG/5 ML SYRINGE IV ONE (08:15)
[2020-11-21] MEDS ORDERED: PROPOFOL 200 MG/20 ML VIAL IV ONE (08:15)
--- NOTE | 2020-11-21 08:35 | Brief Operative Note ---
Brief Operative Note Date of procedure: 11/21/20 Pre-op diagnosis: epigastric pain;weight loss;anorexia Post-op diagnosis: other (distal esophagitis;severe erosive gastritis;mild gastoparesis with retained food particles) Procedure: egd with biopsies and clotest Grafts/Implants: No Anesthesia: other (general) Findings: inflammation of distal esophagus above ge junction with healed linear ulcer;no stricture;retaine old food in fundus and body ;moderately severe inflammation of entire antrum with superficial erosions Complications: none Surgeon: Jerod Valle Specimens Removed/Pathology: other (biopsies for routine path and brandyn-test) Condition: stable Disposition: ICU
[2020-11-21] MEDS ORDERED: FAMOTIDINE 20 MG TABLET PO SCH (09:00)
[2020-11-21] MEDS ORDERED: ONDANSETRON 4 MG ODT TABLET SL PRN (09:07)
[2020-11-21] MEDS ORDERED: ACETAMINOPHEN 325 MG TABLET PO PRN (09:07)
[2020-11-21] MEDS ORDERED: HYDROmorphone 0.5 MG/0.5 ML SYRINGE IV PRN (09:07)
[2020-11-21] MEDS ORDERED: traMADol 50 MG TABLET PO PRN (09:07)
[2020-11-21] MEDS ORDERED: ONDANSETRON 4 MG/2 ML VIAL IV PRN (09:07)
[2020-11-21] MEDS ORDERED: GABAPENTIN 100 MG CAPSULE PO SCH (09:07)
[2020-11-21] MEDS ORDERED: POTASSIUM CHLORIDE 20 MEQ PACKET PO PRN (09:07)
[2020-11-21] MEDS ORDERED: ACETAMINOPHEN 650 MG/65 ML BAG IV PRN (09:07)
[2020-11-21] MEDS ORDERED: MAGNESIUM SULFATE 2 GM/50 ML BAG IV PRN (09:07)
[2020-11-21] MEDS ORDERED: BISACODYL 10 MG SUPP.RECT PR PRN (09:07)
[2020-11-21] MEDS ORDERED: CARBOXYMETHYLCELLULOSE SODIUM 1 EACH DROPER.GEL OU PRN (09:07)
[2020-11-21] MEDS ORDERED: MELATONIN 3 MG TABLET PO PRN (09:07)
[2020-11-21] MEDS ORDERED: POLYETHYLENE GLYCOL 3350 17 GM PACKET PO PRN (09:07)
[2020-11-21] MEDS ORDERED: POTASSIUM CHLORIDE 40 MEQ in DEXTROSE 5% IN WATER 500 ML IV PRN (09:07)
[2020-11-21] MEDS: cefTRIAXone 2 GM in DEXTROSE 5% IN WATER 50 ML IV SCH (09:43)
[2020-11-21] MEDS ORDERED: LIDOCAINE PATCH TOPICAL SCH (10:00)
[2020-11-21] MEDS: LIDOCAINE PATCH TOPICAL SCH (10:35)
[2020-11-21] MEDS: DOCUSATE SODIUM 100 MG CAPSULE PO SCH ×3 (10:36→20:43)
[2020-11-21] MEDS: THIAMINE 100 MG TABLET PO SCH ×2 (10:36→14:11)
[2020-11-21] MEDS: CYANOCOBALAMIN (VITAMIN B-12) 500 MCG TABLET PO SCH (10:36)
[2020-11-21] MEDS: MULTIVIT,THER IRON,CA,FA & MIN 1 TABLET PO SCH ×2 (10:36→14:11)
[2020-11-21] MEDS: GABAPENTIN 100 MG CAPSULE PO SCH ×3 (10:37→20:43)
[2020-11-21] MEDS: FOLIC ACID 1 MG TABLET PO SCH ×2 (10:37→14:10)
[2020-11-21] MEDS: 0.9 % SODIUM CHLORIDE 250 ML IV SCH ×2 (10:37→20:51)
--- NOTE | 2020-11-21 11:23 | Internal Med Progress Note ---
SUBJECTIVE Subjective Patient information: Note initiated : 11/21/20 at 11:19 am Service Date, if different from initiated Date: [] Patient: Jodie Cazares a 70 y/o F admitted on 11/18/20 for back pain/fall. Chief Complaint: [] Interval history: Ms. Cazares is a 70 year old left-handed F from [place], lives alone and over the last few months has not been able to take care of herself due to progressive weakness. She was admitted in July for failure to thrive/generalized aches and not being able to take care of her self. For the last few days she has had multiple falls due to progressive weakness and unable to perform ADLs. She endorses to 6 out of 10 to 7 out of 10 back pain and also new onset left arm weakness over the last 2 to 3 weeks. She feels that symptoms started after an episode of shingles/? Scabies following an episode of intense itching. She saw wound care at [facility] and was treated with resolution of symptoms but her weakness persisted. She denied associated headache, fever, chest palpitation, incontinence but end orses to generalized weakness/weight loss/poor appetite/lethargy and inability to care of self. She does not have any help available at home. Initial work-up in the ER was consistent with multilevel DJD/subacute lumbar compression fractures. Patient was started on pain control and due to profound debility/deconditioning FTT/PEM leading to generalized weakness and multiple falls hospitalist service was consulted for admission. Biochemical profile was unremarkable At the time of my evaluation patient is alert and able to answer most of the questions. She endorses to history as above. She appears extremely frustrated with her situation. 11/17-patient doing well overnight. Ongoing therapy/consults per dietitian and rehab. Await wound care notes. Lucid alert and respond to commands. Macrocytic anemia on multivitamins. 11/18-patient complains of lightheadedness dizziness and chest pain. Stat chest imaging/troponin/lactic acid/EKG ordered. White count at 15.7. Started on crystalloid bolus following systolics mid 80s. High likelihood sepsis induced hypotension. Start hydrocortisone 50 in light of previous steroid use. Restart bolus/vasopressors if indicated. Transfer to ICU. Start empiric antibiotics on Rocephin/azithromycin. 11/19-patient doing a lot better. Improved chest pain. White count 15,000 slightly lower than previous day. CT chest negative for acute process or PE, creatinine 0.3, on dietary supplements/multivitamin and electrolyte replacement as indicated. Ongoing therapies. Anticipate discharge to SNF per case management. Systolics improved to 120s. 11/20-patient complains of persistent left-sided upper abdomen/lower chest pain. Worsening on palpation around the sternal area and on the rib. No crepitus. No evidence of fractures noted on multiple chest imaging. White count at 20,000. No clear source identified. On antibiotic coverage. Remains afebrile. Blood cultures negative so far. COVID-19 negative. Phosphorus improved 2.5. Start PPI for possible gastritis. 11/21-m status post upper endoscopy today. Severe erosive gastritis/esophagitis noted. Surgery recommends sucralfate/continuing PPI. Started on diet. Abdominal pain much improved. Continuing lidocaine patches for low back pain/herpetic neuralgia. Anticipate SNF transfer in 24 hours pending clinical improvement. Advance diet as tolerated. Continue therapies as tolerated. Constitutional Vitals: Vital Signs Temp Pulse Resp BP Pulse Ox 98.1 F 89 14 129/72 98 11/21/20 10:15 11/21/20 10:15 11/21/20 10:15 11/21/20 10:15 11/21/20 10:15 Period Temp Pulse Resp BP Sys/Frias Pulse Ox Last 24 Hr 97.5 F-99 F 79-97 6-31 100-130/17-74 94-100 Intake and Output 11/20/20 11/21/20 11/21/20 21:59 05:59 13:59 Intake Total 590 350 Output Total 600 750 250 Balance -10 -400 -250 Weight 43.726 kg anxious but doing well Oriented Nonlabored breathing Significant left shoulder herpetic neuralgia Thin and frail Intake & Output: Intake & Output 11/20/20 11/21/20 11/21/20 21:59 05:59 13:59 Intake Total 590 350 Output Total 600 750 250 Balance -10 -400 -250 Weight 43.726 kg Intake: IV 50 250 Zithromax 500 mg In Dextrose 5% 250 in Water 250 ml @ 250 mls/hr IV DAILY@1100 [facility] Rx#:[id number] Rocephin 2 gm In Dextrose 5% in 50 Water 50 ml @ 100 mls/hr IV DAILY [facility] Rx#:[id number] Oral 540 100 Output: Void Amount 600 750 250 Other: Meal Dinner Percent of Meal Consumed 0% Urine Appearance Clear Urine Color Dark Yellow OBJ DATA Labs CBC & Chem 7: 11/21/20 04:52 11/21/20 04:52 Labs: Abnormal Lab Results 11/21/20 11/21/20 11/20/20 04:52 04:52 04:47 WBC RBC 2.88 L Hgb 10.2 L Hct 31.7 L MCV 110.1 H MCH 35.4 H RDW 15.0 H Neut % (Auto) Lymph % (Auto) 10.1 L Vernon % (Auto) Lymph # (Auto) 0.93 L Vernon # (Auto) Absolute Neutrophils Carbon Dioxide Anion Gap 6.0 L BUN Creatinine 0.4 L Glucose Calcium 7.8 L Phosphorus Lactate Dehydrogenase 312 H Total Protein 5.6 L Albumin 2.2 L Globulin Albumin/Globulin Ratio 0.6 L Procalcitonin 0.12 H 11/20/20 11/20/20 11/19/20 04:47 04:47 07:59 WBC 20.2 H RBC 2.82 L Hgb 10.0 L Hct 30.2 L MCV 107.1 H MCH 35.5 H RDW 14.7 H Neut % (Auto) 87.5 H Lymph % (Auto) 5.2 L Vernon % (Auto) Lymph # (Auto) 1.05 L Vernon # (Auto) 1.39 H Absolute Neutrophils 17.62 H Carbon Dioxide 18 L Anion Gap BUN 6 L Creatinine 0.3 L 0.3 L Glucose 115 H Calcium 7.8 L 8.2 L Phosphorus 2.4 L Lactate Dehydrogenase 242 H 229 H Total Protein 5.5 L Albumin 2.3 L 2.5 L Globulin 4.0 H Albumin/Globulin Ratio 0.7 L 0.6 L Procalcitonin 11/19/20 11/19/20 04:59 04:59 WBC 15.1 H RBC 3.35 L Hgb Hct MCV 107.8 H MCH 35.8 H RDW Neut % (Auto) 93.9 H Lymph % (Auto) 5.1 L Vernon % (Auto) 0.8 L Lymph # (Auto) 0.77 L Vernon # (Auto) Absolute Neutrophils 14.13 H Carbon Dioxide Anion Gap BUN Creatinine Glucose Calcium Phosphorus Lactate Dehydrogenase Total Protein Albumin Globulin Albumin/Globulin Ratio Procalcitonin 0.13 H Meds: Medications Acetaminophen (Tylenol) 650 mg PO Q4-6HP PRN; Protocol PRN Reason: Per Pain Protocol/Fever > 101 Artificial Tears (Refresh Celluvisc) 1 each OU QIDP PRN PRN Reason: Dry Eyes Bisacodyl (Dulcolax) 10 mg MT Q2-3DAYS PRN PRN Reason: Constipation Docusate Sodium (Colace) 100 mg PO BID [facility] Last Admin: 11/21/20 10:36 Dose: 100 mg Documented by: Famotidine (Pepcid) 40 mg PO QDAY [facility] Last Admin: 11/21/20 10:50 Dose: 40 mg Documented by: Folic Acid (Folic Acid) 1 mg PO DAILY [facility] Last Admin: 11/21/20 10:37 Dose: 1 mg Documented by: Gabapentin (Neurontin) 100 mg PO TID [facility] Last Admin: 11/21/20 10:37 Dose: 100 mg Documented by: Hydromorphone HCl (Dilaudid) 0.25 - 0.5 mg IV Q4HP PRN; Protocol PRN Reason: Per Pain Protocol Ceftriaxone Sodium 2 gm/ (Dextrose) 50 mls @ 100 mls/hr IV DAILY [facility]; Protocol Sodium Chloride (Sodium Chloride 0.9%) 250 mls @ 20 mls/hr IV .[id number] [facility] Last Admin: 11/21/20 10:37 Dose: Not Given Documented by: Acetaminophen (Ofirmev) 650 mg in 65 mls @ 130 mls/hr IV Q6HP PRN; Protocol PRN Reason: Per Pain Protocol/Fever > 101 Magnesium Sulfate (Magnesium Sulfate) 2 gm in 50 mls @ 50 mls/hr IV UD PRN PRN Reason: MG = or < 1.7 Potassium Chloride 40 meq/ (Dextrose) 520 mls @ 130 mls/hr IV UD PRN PRN Reason: K+ = or < 3.5 Iron Carb/Multivit/Shirrer/Folic Acid (Multivitamin W/Minerals) 1 tab PO DAILY [facility] Last Admin: 11/21/20 10:36 Dose: 1 tab Documented by: Lidocaine (Lidoderm) 2 patch TOPICAL DAILY@1000 [facility] Last Admin: 11/21/20 10:35 Dose: 2 patch Documented by: Melatonin (Melatonin 3mg Tablet) 3 mg PO HSP PRN PRN Reason: Insomnia Ondansetron HCl (Zofran Odt) 4 mg SL Q4-6HP PRN; Protocol PRN Reason: Nausea And Vomiting Ondansetron HCl (Zofran) 4 mg IV Q4-6HP PRN; Protocol PRN Reason: Nausea And Vomiting Pantoprazole Sodium (Protonix) 40 mg IV BIDAC [facility] Polyethylene Glycol (Miralax) 17 gm PO DAILYP PRN PRN Reason: Constipation Potassium Chloride (Klor-Con) 40 meq PO DAILYP PRN PRN Reason: K+ < 3.5 Senna/Docusate Sodium (Senna Plus Tablet) 1 tab PO HS [facility] Sodium Chloride (Saline Flush) 10 ml IV Q8 [facility] Sucralfate (Carafate) 1 gm PO Q6 [facility] Thiamine HCl (Vitamin B1) 100 mg PO DAILY [facility] Last Admin: 11/21/20 10:36 Dose: 100 mg Documented by: Tramadol HCl (Ultram) 50 mg PO Q4-6HP PRN; Protocol PRN Reason: Per Pain Protocol A/P Assessment and plan (1) Frailty: Status: Acute (2) Unexplained weight loss: Status: Acute (3) Recurrent falls: Status: Acute (4) Epigastric abdominal pain: Status: Acute (5) Generalized weakness: Status: Acute (6) Compression fracture: Status: Acute (7) Adult failure to thrive: Status: Acute (8) Constipation: Status: Acute Qualifiers: Constipation type: unspecified constipation type Qualified Code(s): K59.00 - Constipation, unspecified Narrative A/P Narrative: * SIRS with hypotension -clinically resolved. Leukocytosis down from 20,000-9-000. (possibly related to hydrocortisone). Cultures negative so far. No evidence of infection at this time. DC empiric antibiotics * Severe ulcerative gastritis/esophagitis currently on PPI/sucralfate. Noted on endoscopy. Advanced diet as tolerated. * Upper abdominal pain-secondary to ulcerative gastritis. Negative CE/CT angio for PE. * Generalized weakness and recurrent falls, continue aggressive physical therapy/gait and safety eval/maintain fall precaution. Await transfer to SNF likely in 24 to 48 hours pending clinical improvement. * Lumbar compression fractures pain management on local lidocaine/acetaminophen/opioids, well controlled * Herpetic neuralgia/left upper extremity weakness continue lidocaine patch/therapies * Adult failure to thrive/ Protein calorie Malnutrition-continue dietary supplements per dietitian * Left arm weakness, herpetic neuropathy versus? CVA versus traumatic upper brachial plexus injury secondary to fall, negative head CT, continue therapy/ASA and statin * GERD on famotidine * Iron def Anemia stable * HTN continue metoprolol * Prophylaxis heparin PLAN * Continue sucralfate/PPI * Discontinue antibiotics * Maintain fall risk/gait and safety eval * Pre-existing medical condition management home meds * Nutrition support/therapies * Case management coordinate SNF transfer Time Spent With Patient Time: Total time spent is greater than 50% in coordination of care (as documented) at patient's floor/unit and/or counseling patient: QUALITY Stroke Symptom Onset Unknown: No VTE Deep Vein Thrombosis/Pulmonary Embolism Present on Admission: No
[2020-11-21] MEDS: SUCRALFATE 1 GM/10 ML ORAL.SUSP PO SCH ×2 (12:09→18:37)
[2020-11-21] MEDS: FAMOTIDINE 20 MG TABLET PO SCH (14:11)
[2020-11-21] MEDS: HEPARIN 5,000 UNIT/ML VIAL SQ SCH (19:13)
[2020-11-21] MEDS ORDERED: SENNOSIDES/DOCUSATE SODIUM 1 TAB TABLET PO SCH (21:00)
[2020-11-22] MEDS: SUCRALFATE 1 GM/10 ML ORAL.SUSP PO SCH ×3 (01:07→11:54)
[2020-11-22] MEDS: 0.9 % SODIUM CHLORIDE 10 ML SYRINGE IV SCH (05:49)
[2020-11-22] MEDS: GABAPENTIN 100 MG CAPSULE PO SCH (08:17)
[2020-11-22] MEDS: PANTOPRAZOLE 40 MG VIAL IV SCH (08:17)
[2020-11-22] MEDS: FOLIC ACID 1 MG TABLET PO SCH (08:18)
[2020-11-22] MEDS: MULTIVIT,THER IRON,CA,FA & MIN 1 TABLET PO SCH (08:18)
[2020-11-22] MEDS: THIAMINE 100 MG TABLET PO SCH (08:18)
[2020-11-22] MEDS: DOCUSATE SODIUM 100 MG CAPSULE PO SCH (08:18)
[2020-11-22] MEDS ORDERED: cefTRIAXone 2 GM in DEXTROSE 5% IN WATER 50 ML IV SCH (09:00)
[2020-11-22] MEDS: LIDOCAINE PATCH TOPICAL SCH (10:46)
--- NOTE | 2020-11-22 11:40 | Discharge Summary ---
Discharge Provider Provider Patient information: Note initiated : 11/22/20 at 11:34 am Service Date, if different from initiated Date: [] Patient: Jodie Cazares a 70 y/o F admitted on 11/18/20 for back pain/fall. Discharge diagnosis * SIRS with hypotension -clinically resolved. Leukocytosis resolved from 20 K to 9K. (possibly related to steroid). Cultures negative, no evidence of infection , cough empiric antibiotics * Severe ulcerative gastritis/esophagitis noted on EGD. Continue PPI/sucralfate per surgery recommendations. Advanced diet as tolerated. * Upper abdominal pain secondary to osteoarthritis. Improved * Adult failure to thrive secondary to ulcerative gastritis and unable to eat due to pain. Clinically improving with aggressive nutritional support per dietitian. Continue nutritional consult/support at SNF * Generalized weakness and recurrent falls, recommend continuation of PT OT /gait and safety eval/maintain fall precaution. * Lumbar compression fractures-continue pain management on local lidocaine/acetaminophen, well controlled * Left arm weakness, herpetic neuralgia/neuropathy versus? CVA versus traumatic upper brachial plexus injury secondary to fall, negative head CT, continue therapy/ASA and statin/local lidocaine patch * Iron def Anemia stable * HTN stable on home dose metoprolol Brief hospital course Ms. Cazares is a 70 year old left-handed F from [place], lives alone and over the last few months has not been able to take care of herself due to progressive weakness. She was admitted in July for failure to thrive/generalized aches and not being able to take care of her self. For the last few days she has had multiple falls due to progressive weakness and unable to perform ADLs. She endorses to 6 out of 10 to 7 out of 10 back pain and also new onset left arm weakness over the last 2 to 3 weeks. She feels that symptoms started after an episode of shingles/? Scabies following an episode of intense itching. She saw wound care at [facility] and was treated with resolution of symptoms but her weakness persisted. She denied associated headache, fever, chest palpitation, incontinence but endorses to generalized weakness/weight loss/poor appetite/lethargy and inability to care of self. She does not have any help available at home. Initial work-up in the ER was consistent with multilevel DJD/subacute lumbar compression fractures. Patient was started on pain control and due to profound debility/deconditioning FTT/PEM leading to generalized weakness and multiple falls hospitalist service was consulted for admission. Biochemical profile was unremarkable At the time of my evaluation patient is alert and able to answer most of the questions. She endorses to history as above. She appears extremely frustrated with her situation. 11/17-patient doing well overnight. Ongoing therapy/consults per dietitian and rehab. Await wound care notes. Lucid alert and respond to commands. Macrocytic anemia on multivitamins. 11/18-patient complains of lightheadedness dizziness and chest pain. Stat chest imaging/troponin/lactic acid/EKG ordered. White count at 15.7. Started on crystalloid bolus following systolics mid 80s. High likelihood sepsis induced hypotension. Start hydrocortisone 50 in light of previous steroid use. Restart bolus/vasopressors if indicated. Transfer to ICU. Start empiric antibiotics on Rocephin/azithromycin. 11/19-patient doing a lot better. Improved chest pain. White count 15,000 slightly lower than previous day. CT chest negative for acute process or PE, creatinine 0.3, on dietary supplements/multivitamin and electrolyte replacement as indicated. Ongoing therapies. Anticipate discharge to SNF per case management. Systolics improved to 120s. 11/20-patient complains of persistent left-sided upper abdomen/lower chest pain. Worsening on palpation around the sternal area and on the rib. No crepitus. No evidence of fractures noted on multiple chest imaging. White count at 20,000. No clear source identified. On antibiotic coverage. Remains afebrile. Blood cultures negative so far. COVID-19 negative. Phosphorus improved 2.5. Start PPI for possible gastritis. 11/21-m status post upper endoscopy today. Severe erosive gastritis/esophagitis noted. Surgery recommends sucralfate/continuing PPI. Started on diet. Abdominal pain much improved. Continuing lidocaine patches for low back pain/herpetic neuralgia. Anticipate SNF transfer in 24 hours pending clinical improvement. Advance diet as tolerated. Continue therapies as tolerated. 11/22-patient doing a lot better. Tolerating diet. Abdominal discomfort improve d. Currently on twice a day PPI/sucralfate. Continue for minimum of 3 months. Follow-up with PCP in 10 to 15 days. Continue aggressive posthospitalization rehab/PT OT ST eval and treatment. Will require dietitian intervention for adult failure to thrive and severe protein calorie malnutrition management. Patient will remain a high fall risk and will require fall watch Date of admission: 11/18/20 08:58 Discharge date: 11/22/20 Primary care physician: MARIA DEL CARMEN Samuel Consults: 11/16/20 Consult to Physician [CONS] Stat Comment: Consulting Provider: Karthik Dan Reason For Exam: Physician to Consult 11/19/20 15:13 Consult to Physician [CONS] Routine Comment: Consulting Provider: [facility] Reason For Exam: Physician to Consult 11/20/20 09:21 Consult to Physician [CONS] Routine Comment: Consulting Provider: Jerod Valle Reason For Exam: Physician to Consult Discharge Meds Discharge Medications Home Medications azathioprine 50 mg PO QDAY 07/29/20 [History Confirmed 11/18/20 Last Taken Unknown] ergocalciferol (vitamin D2) 1,250 mcg PO WEEKLY 07/29/20 [History Confirmed 11/18/20 Last Taken Unknown] ferrous sulfate 325 mg PO QDAY 07/29/20 [History Confirmed 11/18/20 Last Taken Unknown] metoprolol succinate 12.5 mg PO QDAY 07/29/20 [History Confirmed 11/18/20 Last Taken Unknown] polyethylene glycol 3350 [Miralax] 17 g PO BID 07/29/20 [History Confirmed 11/18/20 Last Taken Unknown] prednisone 10 mg PO QDAY 07/29/20 [History Confirmed 11/18/20 Last Taken Un known] polyvinyl alcohol [Artificial Tears (polyvin alc)] 1 drp OPHTHALMIC (EYE) QID PRN 11/16/20 [History Confirmed 11/16/20 Last Taken Unknown] Fleet Enema 118 ml SC DAILYP PRN 11/18/20 [History Confirmed 11/18/20 Last Taken Unknown] acetaminophen 650 mg PO Q4-6HP PRN 11/18/20 [History Confirmed 11/18/20 Last Taken Unknown] gabapentin 100 mg PO TID 11/18/20 [History Confirmed 11/18/20 Last Taken Unknown] lidocaine 2 patch TOPICAL QDAY 11/18/20 [History Confirmed 11/18/20 Last Taken Unknown] pantoprazole [Protonix] 40 mg PO BID #60 tab 11/22/20 [Rx Last Taken Unknown] sucralfate 1 gm PO Q6 #180 ml 11/22/20 [Rx Last Taken Unknown] COURSE Hospital Course Hospital course: . Discharge diagnosis: Ulcerative gastritis/protein calorie malnutrition/adult failure to thrive Time Spent with Patient Time attestation: Total time spent providing and/or coordinating discharge services: EXAM Constitutional Vitals: Temp Pulse Resp BP Pulse Ox 99.4 F H 93 H 16 97/55 92 11/22/20 08:01 11/22/20 08:01 11/22/20 10:00 11/22/20 10:00 11/22/20 10:00 Discharge Data Data Completed and Pending Labs on day of discharge: Labs from last 24 hours 11/22/20 11/18/20 04:47 09:49 Procalcitonin 0.06 Ur L.pneumophila Ag Not detected Preliminary micro results at discharge 11/18/20 09:49 Blood Culture - Preliminary Blood 11/18/20 09:20 Blood Culture - Preliminary Blood Discharge Plan Patient/Caregiver Discharge Instructions Activity: ambulate only with your walker and increase activity as tolerated Diet: Regular Diet Activity Restrictions/Additional Instructions: Maintain fall watch continue ST OT PT eval and treatment Nutrition support for severe protein calorie malnutrition 3-month oral sucralfate cell PPI Lidocaine patches for lumbar compression fracture/herpetic neuralgia left arm PCP follow-up in 7 to 10 days. Prescriptions: New sucralfate 100 mg/mL Suspension 1 gm PO Q6 Qty: 180 RF: 0 pantoprazole [Protonix] 40 mg tablet,delayed release (DR/EC) 40 mg PO BID Qty: 60 RF: 0 Continued ferrous sulfate 325 mg (65 mg iron) Tablet 325 mg PO QDAY RF: 0 metoprolol succinate 25 mg Tablet Extended Release 24 Hr 12.5 mg PO QDAY RF: 0 ergocalciferol (vitamin D2) 1,250 mcg (50,000 unit) Capsule 1,250 mcg PO WEEKLY RF: 0 polyethylene glycol 3350 [Miralax] 17 gram/dose Powder 17 g PO BID RF: 0 prednisone 10 mg Tablet 10 mg PO QDAY RF: 0 azathioprine 50 mg Tablet 50 mg PO QDAY RF: 0 polyvinyl alcohol [Artificial Tears (polyvin alc)] 1.4 % Drops 1 drp OPHTHALMIC (EYE) QID PRN (Reason: Dry Eyes) RF: 0 acetaminophen 325 mg Tablet 650 mg PO Q4-6HP PRN (Reason: Fever Or Pain) RF: 0 gabapentin 100 mg Capsule 100 mg PO TID RF: 0 lidocaine 5 % Adhesive Patch,Medicated 2 patch TOPICAL QDAY RF: 0 Fleet Enema 19-7 gram/118 mL Enema 118 ml SC DAILYP PRN (Reason: Constipation) RF: 0 Discontinued famotidine 40 mg Tablet 40 mg PO QDAY RF: 0 Follow Up Plan Follow up with: Ulises Olivier ARNP [Primary Care Provider] - Patient Disposition: Xfer SNF Prognosis: Fair Rehab Potential: Fair I certify that the patient requires SNF services: Yes Overall status at discharge: patient is progressing back to baseline Discharge Orders: Discharge Order (Routine); Ordered 11/22/20 Ordered By: Karthik RYDER VTE Deep Vein Thrombosis/Pulmonary Embolism Present on Admission: No
[2020-11-22] MEDS: 0.9 % SODIUM CHLORIDE 250 ML IV SCH (11:50)
--- NOTE | 2020-11-22 12:21 | Surgical Pathology Report ---
Histology Microscopic Diagnosis Specimen A- ESOPHAGUS, BIOPSY: --- GASTRIC CARDIA TYPE MUCOSA WITH MILD CHRONIC INFLAMMATION. --- NO INTESTINAL (GOBLET CELL) METAPLASIA IDENTIFIED ON ALCIAN BLUE/PAS STAIN (ADEQUATE TECHNICAL CONTROL). --- SQUAMOUS MUCOSA ABSENT. Clinical History Epigastric pain; weight loss; anorexia. Procedural Impression Distal esophagitis; severe erosive gastritis; mild gastroparesis with retained food particles. Gross Description Received in formalin labeled esophagus biopsy, is a 0.5 cm fragment of christine-tissue. Totally submitted - one cassette. Microscopic Diagnosis Specimen B- STOMACH, ANTRUM, BIOPSY: --- CHRONIC GASTRITIS WITH MILD ACTIVITY AND BACKGROUND FEATURES CONSISTENT WITH REACTIVE GASTROPATHY. --- INTESTINAL METAPLASIA, FOCAL; NEGATIVE FOR DYSPLASIA. --- NO HELICOBACTER ORGANISMS IDENTIFIED ON ALCIAN YELLOW STAIN (ADEQUATE TECHNICAL CONTROL). (DMT:sln) Gross Description Received in formalin labeled antrum brandyn test, are two fragments of pink-mckeon tissue 0.4 and 0.8 cm. Totally submitted - one cassette. (KGW:sln) Electronically Signed Florentino Avina MD, FCAP Electronically Signed 11/22/2020 12:20
--- NOTE | 2020-12-19 13:09 | EGD Procedure Note ---
PREOPERATIVE DIAGNOSES: Epigastric pain, weight loss, and anorexia. POSTOPERATIVE DIAGNOSES: Distal esophagitis, severe erosive gastritis, mild gastroparesis with retained food. PROCEDURE: Esophagogastroduodenoscopy with biopsies and CLOtest. SURGEON: Jerod Valle M.D. FINDINGS: Inflammation of the distal esophagus above the GE junction with a healed linear ulceration at the GE junction, but no evidence of stricture. Retained old food in the fundus and the body of the stomach, moderately severe inflammation of the entire antrum with superficial erosions. DESCRIPTION OF PROCEDURE: Under general anesthesia, the patient was turned to the left lateral decubitus position. Timeout procedure was carried out as per protocol. Bite block was placed. Scope was introduced through the bite block into the retropharynx and esophagus. The proximal esophagus was unremarkable. There was moderate inflammation of the distal esophagus above the GE junction. There was no evidence of stricture in this area, however. At the GE junction there was a healed linear ulcer with mild inflammation, but no major friability and no stricture. The scope passed easily through the GE junction. There was some retained food in the fundus and body of the stomach, comprising a bezoar. Peristalsis of the body and fundus of the stomach was clinically significantly decreased. There was moderately severe inflammation of the antrum with scattered superficial erosions. Pylorus opened appropriately. Duodenum was normal. Duodenum out to the third portion was unremarkable. Scope was pulled back and retroflex view was done. There was a small hiatal hernia. No other pathology was noted. Biopsies of the antrum and prepyloric area were taken for routine pathology and CLOtest. Air was suctioned from the stomach and the scope was removed. The patient tolerated the procedure well. She was awakened and transferred to a bed and taken to the postanesthetic care unit in stable, satisfactory condition. LCS:omaira Job ID: [id number] Doc ID: [id number] Jerod Valle M.D.
== END 2020-11-22 13:01 | DRG 392 ==
LOC: MEDSUR 12:07 → ED 12:07 → MEDSUR 17:01 → ICU 11-18 08:50
PROVIDERS: ADMIT Internal Medicine; ATTEND Internal Medicine